=== PATIENT | female | born 1980 | race Caucasian/White ===

== ENCOUNTER 2022-10-18 00:51 | Emergency (ER) | payer OTHER ==
[2022-10-18] MEDS ORDERED: LORazepam 2 MG/ML INJ IV PRN ×3 (00:54)
[2022-10-18] MEDS ORDERED: THIAMINE 100 MG/ML 2 ML VIAL IM STA (00:54)
[2022-10-18 01:39] LABS: Basophils % (A) 1 %; Eosinophils # (A) 0.2 k/uL (0-0.7); Eosinophils % (A) 2 %; HGB 13.6 gm/dL (11.4-16.0); Lymphocytes # (A) 1.7 k/uL (1.0-4.8); Lymphocytes % (A) 28 %; MCH 33.2 pg (25.0-35.0); MCHC 34.9 g/dL (31.0-37.0); MCV 95.1 fL (80.0-100.0); Mean Platelet Volume 7.4; Monocytes # (A) 0.3 k/uL (0-1.0); Monocytes % (A) 5 %; Neutrophils # (A) 3.8 k/uL (1.3-7.7); Neutrophils % (A) 63 %; Platelet Count 142 k/uL (150-450); RDW 12.2 % (11.5-15.5); WBC 6.1 k/uL (3.8-10.6)
[2022-10-18 01:51] LABS: ALT 28 U/L (4-34); AST 40 U/L (14-36); African American GFR (CKD) >90 (>60 ml/min/1.73 sqM); Albumin 4.7 g/dL (3.5-5.0); Alcohol <10 mg/dL; Alkaline Phosphatase 90 U/L (38-126); Anion Gap 7 mmol/L; Blood Urea Nitrogen 17 mg/dL (7-17); Calcium 9.4 mg/dL (8.4-10.2); Carbon Dioxide 29 mmol/L (22-30); Chloride 98 mmol/L (98-107); Glucose 127 mg/dL (74-99); Lipase 159 U/L (23-300); Magnesium 1.7 mg/dL (1.6-2.3); Non-African American GFR(CKD) >90 (>60 ml/min/1.73 sqM); Potassium 4.1 mmol/L (3.5-5.1); Sodium 134 mmol/L (137-145); Total Protein 7.5 g/dL (6.3-8.2)
[2022-10-18] MEDS ORDERED: THIAMINE 100 MG TAB PO STA (02:04)
[2022-10-18 02:13] LABS: Appearance,Urine Clear (Clear); Bilirubin,Urine Negative (Negative); Blood,Urine Negative (Negative); Color,Urine Yellow; Glucose,Urine (UA) Negative (Negative); Hyaline Casts,Urine 8 /lpf (0-2); Ketones,Urine Trace (Negative); Leukocyte Esterase,Urine Trace (Negative); Mucus,Urine Few /hpf; Nitrite,Urine Negative (Negative); PH, Urine 6.5 (5.0-8.0); Protein,Urine 1+ (Negative); RBC,Urine 1 /hpf (0-5); Squamous Epithelial Cell,Urine 2 /hpf (0-4); WBC,Urine 2 /hpf (0-5)
[2022-10-18 02:21] LABS: Amphetamine Screen,Urine Not Detected (NotDetected); Barbiturate Screen,Urine Not Detected (NotDetected); Benzodiazepines Screen,Urine Detected (NotDetected); Cocaine Screen,Urine Not Detected (NotDetected); Methadone Screen, Urine Not Detected (NotDetected); Opiate Screen,Urine Not Detected (NotDetected); Oxycodone Screen, Urine Not Detected (NotDetected); Phencyclidine Screen,Urine Not Detected (NotDetected); Tricyclic Antidepressant,Urine Detected (NotDetected); Urn Cannabinoid Scrn Not Detected (NotDetected)
[2022-10-18 02:44] VITALS: BP 145/93; PULSE 101
--- NOTE | 2022-10-18 02:44 | ED ---
General Adult HPI - General Chief complaint: Psychiatric Symptoms Stated complaint: Petition Time Seen by Provider: 10/18/22 00:53 - History of Present Illness Initial comments: This is a 42-year-old female with a past medical history including EtOH abuse presents emergency department via EMS under petition from [facility]. It was reported that the patient was having hallucinations at the rehab facility and was petitioned and sent into the emergency department for evaluation. The patient on arrival was resting in bed comfortably and did have thoughts of delusions while she was in her room but was able to answer all questions appropriately here. The patient denied suicidal or homicidal ideations. The patient also denied any auditory or visual hallucinations. The patient did state that her last alcoholic drink was 30 hours prior. The patient had been given 1 dose of Ativan at 6:30 PM. The patient denied any other acute pain or complaints at this time. Review of Systems ROS Statement: Those systems with pertinent positive or pertinent negative responses have been documented in the HPI. ROS Other: All systems not noted in ROS Statement are negative. General Exam Limitations: no limitations General appearance: alert, in no apparent distress Head exam: Present: atraumatic, normocephalic, normal inspection Eye exam: Present: normal appearance, PERRL Pupils: Present: normal accommodation ENT exam: Present: normal exam, normal oropharynx, mucous membranes moist Neck exam: Present: normal inspection, full ROM Respiratory exam: Present: normal lung sounds bilaterally Cardiovascular Exam: Present: regular rate, normal rhythm, normal heart sounds GI/Abdominal exam: Present: soft, normal bowel sounds Extremities exam: Present: normal inspection, full ROM, other (Amputation of the right forearm) Back exam: Present: normal inspection, full ROM Neurological exam: Present: alert, oriented X3, CN II-XII intact Psychiatric exam: Present: normal affect, normal mood Skin exam: Present: warm, dry Course Vital Signs 10/18/22 02:35 Pulse Rate 101 H Blood Pressure 145/93 O2 Sat by Pulse 98 Oximetry EKG Findings - EKG Comments: EKG Findings:: An EKG was obtained and was interpreted by myself showing a rate of 102, VA interval 142, QRS duration of 84 and QTC of 388. This EKG showed a sinus tachycardia with no ST segment elevation or depression noted. Medical Decision Making - Medical Decision Making Was pt. sent in by a medical professional or institution (JOSE Jimenez, UNDERCOVER COP, urgent care, hospital, or care home...) When possible be specific @ -Yes, [place] Did you speak to anyone other than the patient for history (EMS, parent, family, police, friend...)? What history was obtained from this source @ -Yes, patient's at bedside, EMS Did you review nursing and triage notes (agree or disagree)? Why? @ -I reviewed and agree with nursing and triage notes Were old charts reviewed (outside hosp., previous admission, EMS record, old EKG, old radiological studies, urgent care reports/EKG's, care home records)? Report findings @ -No old charts were reviewed Differential Diagnosis (chest pain, altered mental status, abdominal pain women, abdominal pain men, vaginal bleeding, weakness, fever, dyspnea, syncope, headache, dizziness, GI bleed, back pain, seizure, CVA, palpatations, mental health)? @ -Auditory hallucinations, visual hallucinations, EtOH withdrawal EKG interpreted by me (3pts min.). @ -As above X-rays interpreted by me (1pt min.). @ -Chest x-ray was obtained and was interpreted by myself showing no acute process. CT interpreted by me (1pt min.). @ -None done U/S interpreted by me (1pt. min.). @ -None done What testing was considered but not performed or refused? (CT, X-rays, U/S, labs)? Why? @ -None What meds were considered but not given or refused? Why? @ -None Did you discuss the management of the patient with other professionals (professionals i.e. JOSE Jimenez, UNDERCOVER COP, lab, RT, psych nurse, social insurance specialist, roll scale man, teacher, senior officer, hospice case manager)? Give summary @ -Yes, EPS nurse Was smoking cessation discussed for >3mins.? @ -Yes Was critical care preformed (if so, how long)? @ -No Were there social determinants of health that impacted care today? How? (Home lessness, low income, unemployed, alcoholism, drug addiction, transportation, low edu. Level, literacy, decrease access to med. care, long-term, rehab)? @ -Chronic alcoholism Was there de-escalation of care discussed even if they declined (Discuss DNR or withdrawal of care, Hospice)? DNR status @ -No What co-morbidities impacted this encounter? (DM, HTN, Smoking, COPD, CAD, Cancer, CVA, ARF, Chemo, Hep., AIDS, mental health diagnosis, sleep apnea, morbid obesity)? @ -None Was patient admitted / discharged? Hospital course, mention meds given and route, prescriptions, significant lab abnormalities, going to OR and other pertinent info. @ -The patient was seen and evaluated emergency department. Physical exam, the patient was resting in bed without any acute distress. Vital signs were stable on admission. Due to the patient's concern hallucinations in the setting of EtOH withdrawal, laboratory workup was obtained and CIWA score was also obtained. CIWA was 1. All laboratory workup was within normal limits. The patient was medically cleared for EPS evaluation. The patient was petitioned by [place] stated that she was hallucinating there. The patient remained stable and was seen by EPS. EPS to evaluate the patient and stated that the patient could be discharged back to [place] or home based on the patient's decisions. It was reported the patient likely had mild hallucinations secondary to EtOH withdrawal. The patient denied of any continued hallucinations here and I did agree with this assessment. The patient was discharged home in stable condition. Undiagnosed new problem with uncertain prognosis? @ -No Drug Therapy requiring intensive monitoring for toxicity (Heparin, Nitro, Insulin, Cardizem)? @ -No Were any procedures done? @ -No Diagnosis/symptom? @ -Hallucinations secondary to mild EtOH withdrawal, resolved Acute, or Chronic, or Acute on Chronic? @ -Acute Uncomplicated (without systemic symptoms) or Complicated (systemic symptoms)? @ -Uncomplicated Side effects of treatment? @ -No Exacerbation, Progression, or Severe Exacerbation? @ -No Poses a threat to life or bodily function? How? (Chest pain, USA, [place], pneumonia, PE, COPD, DKA, ARF, appy, cholecystitis, CVA, Diverticulitis, Homicidal, Suicidal, threat to staff... and all critical care pts) @ -No - Lab Data Result diagrams: 10/18/22 01:25 10/18/22 01:25 Lab Results 10/18/22 10/18/22 10/18/22 Range/Units 01:15 01:25 01:25 WBC 6.1 (3.8-10.6) k/uL RBC 4.10 (3.80-5.40) m/uL Hgb 13.6 (11.4-16.0) gm/dL Hct 39.0 (34.0-46.0) % MCV 95.1 (80.0-100.0) fL MCH 33.2 (25.0-35.0) pg MCHC 34.9 (31.0-37.0) g/dL RDW 12.2 (11.5-15.5) % Plt Count 142 L (150-450) k/uL MPV 7.4 Neutrophils % 63 % Lymphocytes % 28 % Monocytes % 5 % Eosinophils % 2 % Basophils % 1 % Neutrophils # 3.8 (1.3-7.7) k/uL Lymphocytes # 1.7 (1.0-4.8) k/uL Monocytes # 0.3 (0-1.0) k/uL Eosinophils # 0.2 (0-0.7) k/uL Basophils # 0.0 (0-0.2) k/uL Sodium (137-145) mmol/L Potassium (3.5-5.1) mmol/L Chloride (98-107) mmol/L Carbon Dioxide (22-30) mmol/L Anion Gap mmol/L BUN (7-17) mg/dL Creatinine (0.52-1.04) mg/dL Est GFR (CKD-EPI)AfAm (>60 ml/min/1.73 sqM) Est GFR (CKD-EPI)NonAf (>60 ml/min/1.73 sqM) Glucose (74-99) mg/dL Calcium (8.4-10.2) mg/dL Magnesium (1.6-2.3) mg/dL Total Bilirubin (0.2-1.3) mg/dL AST (14-36) U/L ALT (4-34) U/L Alkaline Phosphatase (38-126) U/L Total Protein (6.3-8.2) g/dL Albumin (3.5-5.0) g/dL Lipase (23-300) U/L Urine Color Yellow Urine Appearance Clear (Clear) Urine pH 6.5 (5.0-8.0) Ur Specific [place] 1.030 (1.001-1.035) Urine Protein 1+ H (Negative) Urine Glucose (UA) Negative (Negative) Urine Ketones Trace H (Negative) Urine Blood Negative (Negative) Urine Nitrite Negative (Negative) Urine Bilirubin Negative (Negative) Urine Urobilinogen 2.0 (<2.0) mg/dL Ur Leukocyte Esterase Trace H (Negative) Urine RBC 1 (0-5) /hpf Urine WBC 2 (0-5) /hpf Ur Squamous Epith Cells 2 (0-4) /hpf Hyaline Casts 8 H (0-2) /lpf Urine Mucus Few H (None) /hpf Urine HCG, Qual (Not Detectd) Urine Opiates Screen Not Detected (NotDetected) Ur Oxycodone Screen Not Detected (NotDetected) Urine Methadone Screen Not Detected (NotDetected) Ur Propoxyphene Screen Not Detected (NotDetected) Ur Barbiturates Screen Not Detected (NotDetected) U Tricyclic Antidepress Detected H (NotDetected) Ur Phencyclidine Scrn Not Detected (NotDetected) Ur Amphetamines Screen Not Detected (NotDetected) U Methamphetamines Scrn Not Detected (NotDetected) U Benzodiazepines Scrn Detected H (NotDetected) Urine Cocaine Screen Not Detected (NotDetected) U Marijuana (THC) Screen Not Detected (NotDetected) Serum Alcohol mg/dL 10/18/22 10/18/22 Range/Units 01:25 01:25 WBC (3.8-10.6) k/uL RBC (3.80-5.40) m/uL Hgb (11.4-16.0) gm/dL Hct (34.0-46.0) % MCV (80.0-100.0) fL MCH (25.0-35.0) pg MCHC (31.0-37.0) g/dL RDW (11.5-15.5) % Plt Count (150-450) k/uL MPV Neutrophils % % Lymphocytes % % Monocytes % % Eosinophils % % Basophils % % Neutrophils # (1.3-7.7) k/uL Lymphocytes # (1.0-4.8) k/uL Monocytes # (0-1.0) k/uL Eosinophils # (0-0.7) k/uL Basophils # (0-0.2) k/uL Sodium 134 L (137-145) mmol/L Potassium 4.1 (3.5-5.1) mmol/L Chloride 98 (98-107) mmol/L Carbon Dioxide 29 (22-30) mmol/L Anion Gap 7 mmol/L BUN 17 (7-17) mg/dL Creatinine 0.81 (0.52-1.04) mg/dL Est GFR (CKD-EPI)AfAm >90 (>60 ml/min/1.73 sqM) Est GFR (CKD-EPI)NonAf >90 (>60 ml/min/1.73 sqM) Glucose 127 H (74-99) mg/dL Calcium 9.4 (8.4-10.2) mg/dL Magnesium 1.7 (1.6-2.3) mg/dL Total Bilirubin 1.0 (0.2-1.3) mg/dL AST 40 H (14-36) U/L ALT 28 (4-34) U/L Alkaline Phosphatase 90 (38-126) U/L Total Protein 7.5 (6.3-8.2) g/dL Albumin 4.7 (3.5-5.0) g/dL Lipase 159 (23-300) U/L Urine Color Urine Appearance (Clear) Urine pH (5.0-8.0) Ur Specific [place] (1.001-1.035) Urine Protein (Negative) Urine Glucose (UA) (Negative) Urine Ketones (Negative) Urine Blood (Negative) Urine Nitrite (Negative) Urine Bilirubin (Negative) Urine Urobilinogen (<2.0) mg/dL Ur Leukocyte Esterase (Negative) Urine RBC (0-5) /hpf Urine WBC (0-5) /hpf Ur Squamous Epith Cells (0-4) /hpf Hyaline Casts (0-2) /lpf Urine Mucus (None) /hpf Urine HCG, Qual Not Detected (Not Detectd) Urine Opiates Screen (NotDetected) Ur Oxycodone Screen (NotDetected) Urine Methadone Screen (NotDetected) Ur Propoxyphene Screen (NotDetected) Ur Barbiturates Screen (NotDetected) U Tricyclic Antidepress (NotDetected) Ur Phencyclidine Scrn (NotDetected) Ur Amphetamines Screen (NotDetected) U Methamphetamines Scrn (NotDetected) U Benzodiazepines Scrn (NotDetected) Urine Cocaine Screen (NotDetected) U Marijuana (THC) Screen (NotDetected) Serum Alcohol <10 mg/dL Disposition Clinical Impression: Hallucinations, Alcohol withdrawal Disposition: HOME SELF-CARE Condition: Stable Instructions (If sedation given, give patient instructions): Alcohol Withdrawal (DC) Is patient prescribed a controlled substance at d/c from ED?: No Referrals: Ant Perry MD [Primary Care Provider] - 1-2 days Time of Disposition: 04:25
--- NOTE | 2022-10-18 03:15 | XR ---
EXAM: XR Chest, 2 Views CLINICAL HISTORY: ITS.REASON XR Reason: AMS TECHNIQUE: Frontal and lateral views of the chest. COMPARISON: No relevant prior studies available. FINDINGS: Lungs: Unremarkable. No consolidation. Pleural space: Unremarkable. No pneumothorax. No pleural effusions. Heart: Unremarkable. No cardiomegaly. Mediastinum: Unremarkable. Bones/joints: No acute osseous abnormalities. IMPRESSION: Normal chest.
[2022-10-19] MEDS ORDERED: THIAMINE 100 MG TAB PO SCH (09:00)
== END 2022-10-18 05:09 | disposition home or self-care (01) ==
LOC: EC 00:51
DX: R44.3 Hallucinations, unspecified (principal); F10.239 Alcohol dependence with withdrawal, unspecified; Y90.0 Blood alcohol level of less than 20 mg/100 ml
CPT/HCPCS: 99285 ×2; 36415; 93005; 80053; 83690; 83735; 85025; 81001; 81025; 80306; 71046; G0480; 80320

== ENCOUNTER 2023-06-26 18:26 | Emergency (ER) | payer OTHER ==
[2023-06-26 19:35] VITALS: RESP 16; TEMP 98.9
--- NOTE | 2023-06-26 19:43 | XR ---
EXAMINATION TYPE: XR chest 2V DATE OF EXAM: 06/26/2023 7:37 PM CLINICAL INDICATION:Female, 42 years old with history of Chest Pain; [facility] COMPARISON: 10/18/2022 TECHNIQUE: XR chest 2V Frontal and lateral views of the chest. FINDINGS: Lungs/Pleura: There is no evidence of pleural effusion, focal consolidation, or pneumothorax. Pulmonary vascularity: Unremarkable. Heart/mediastinum: Cardiomediastinal silhouette is unremarkable. Musculoskeletal: No acute osseous pathology. Other findings: None IMPRESSION: No acute cardiopulmonary disease/process.
[2023-06-26 20:18] LABS: Basophils # (A) 0.1 k/uL (0-0.2); Basophils % (A) 1 %; Eosinophils % (A) 0 %; HCT 45.4 % (34.0-46.0); HGB 15.4 gm/dL (11.4-16.0); Lymphocytes # (A) 1.5 k/uL (1.0-4.8); Lymphocytes % (A) 27 %; MCH 31.9 pg (25.0-35.0); MCHC 33.9 g/dL (31.0-37.0); Mean Platelet Volume 7.8; Monocytes # (A) 0.3 k/uL (0-1.0); Monocytes % (A) 5 %; Neutrophils # (A) 3.7 k/uL (1.3-7.7); Neutrophils % (A) 66 %; Platelet Count 157 k/uL (150-450); RBC 4.83 m/uL (3.80-5.40); RDW 12.9 % (11.5-15.5); WBC 5.5 k/uL (3.8-10.6)
[2023-06-26 20:32] LABS: ALT 70 U/L (4-34); AST 124 U/L (14-36); African American GFR (CKD) >90 (>60 ml/min/1.73 sqM); Alkaline Phosphatase 81 U/L (38-126); Anion Gap 22 mmol/L; Blood Urea Nitrogen 13 mg/dL (7-17); Calcium 9.3 mg/dL (8.4-10.2); Carbon Dioxide 23 mmol/L (22-30); Chloride 93 mmol/L (98-107); Glucose 106 mg/dL (74-99); Magnesium 1.7 mg/dL (1.6-2.3); Non-African American GFR(CKD) >90 (>60 ml/min/1.73 sqM); Sodium 138 mmol/L (137-145); Total Bilirubin 1.3 mg/dL (0.2-1.3); Total Protein 7.9 g/dL (6.3-8.2)
[2023-06-26] MEDS ORDERED: SODIUM CHLORIDE 0.9% 1,000 ML IV STA (20:33)
[2023-06-26] MEDS ORDERED: LORazepam 2 MG/ML INJ IV STA (20:33)
[2023-06-26] MEDS ORDERED: ONDANSETRON 4 MG/2 ML VIAL IVP STA (20:34)
--- NOTE | 2023-06-26 20:36 | ED ---
Chest Pain HPI - General Chief Complaint: Chest Pain Stated Complaint: chest pain Time Seen by Provider: 06/26/23 18:34 Source: patient, EMS Mode of arrival: EMS Limitations: no limitations - History of Present Illness Initial Comments: 42 year old female presenting from [place] with a chief complaint of chest pain. Patient states approximately 5 PM today started to experience chest pain while at rest. Pain is left-sided. Pain is sharp in nature. Pain is intermittent in nature. No aggravating or alleviating factors. Since also notes that she is withdrawing from alcohol. No prior seizures secondary to alcohol withdrawal. Notes over the past few days has also had some headache and nausea. Patient also admits to some anxiety. No auditory or visual hallucinations. No suicidal or homicidal ideation. Redness of breath. Denies fever. Denies IV drug use. - Related Data Allergies Allergy/AdvReac Type Severity Reaction Status Date / Time No Known Allergies Allergy Verified 06/26/23 18:59 Review of Systems ROS Statement: Those systems with pertinent positive or pertinent negative responses have been documented in the HPI. ROS Other: All systems not noted in ROS Statement are negative. Past Medical History History of Any Multi-Drug Resistant Organisms: None Reported Past Psychological History: No Psychological Hx Reported Smoking Status: Vaper Past Alcohol Use History: Daily, Heavy Past Drug Use History: None Reported General Exam Limitations: no limitations General appearance: alert, in no apparent distress ENT exam: Present: normal exam Neck exam: Present: normal inspection Respiratory exam: Present: normal lung sounds bilaterally Cardiovascular Exam: Present: normal rhythm GI/Abdominal exam: Present: soft Neurological exam: Present: alert, oriented X3 Skin exam: Present: warm, dry Course Vital Signs 06/26/23 06/26/23 19:15 23:06 Temperature 98.9 F Pulse Rate 111 H 102 H Respiratory 16 16 Rate Blood Pressure 134/80 O2 Sat by Pulse 98 98 Oximetry Chest Pain MDM - MDM Was pt. sent in by a medical professional or institution (, PA, INTEGRITY ASSESSOR, urgent care, hospital, or residential...) When possible be specific @ -[place] Did you speak to anyone other than the patient for history (EMS, parent, family, police, friend...)? What history was obtained from this source @ -No Did you review nursing and triage notes (agree or disagree)? Why? @ -I reviewed and agree with nursing and triage notes Were old charts reviewed (outside hosp., previous admission, EMS record, old EKG, old radiological studies, urgent care reports/EKG's, residential records)? Report findings @ -No old charts were reviewed Differential Diagnosis (chest pain, altered mental status, abdominal pain women, abdominal pain men, vaginal bleeding, weakness, fever, dyspnea, syncope, headache, dizziness, GI bleed, back pain, seizure, CVA, palpatations, mental health, musculoskeletal)? @ -Differential Chest Pain: Stable Angina, Unstable Angina, STEMI, NSTEMI Aortic Dissection, Pneumothorax, Musculoskeletal, Esophageal Spasm GERD, Cholecystitis, Pancreatitis, Zoster, this is not meant to be an all-inclusive list. EKG interpreted by me (3pts min.). @ -EKG shows a sinus rhythm at [address] and T-wave changes. [place] 145, QRS 93, QT/QTc 338/402. X-rays interpreted by me (1pt min.). @ -Chest x-ray to rule out me showing no acute finding. CT interpreted by me (1pt min.). @ -None done U/S interpreted by me (1pt. min.). @ -None done What testing was considered but not performed or refused? (CT, X-rays, U/S, labs)? Why? @ -None What meds were considered but not given or refused? Why? @ -None Did you discuss the management of the patient with other professionals (professionals i.e. , PA, INTEGRITY ASSESSOR, lab, RT, psych nurse, social sciences department chair, criminal defense lawyer, teacher, safety patrol officer, caseworker protective services)? Give summary @ -No Was smoking cessation discussed for >3mins.? @ -No Was critical care preformed (if so, how long)? @ -No Were there social determinants of health that impacted care today? How? (Homelessness, low income, unemployed, alcoholism, drug addiction, transportation, low edu. Level, literacy, decrease access to med. care, [facility]ci, rehab)? @ -No Was there de-escalation of care discussed even if they declined (Discuss DNR or withdrawal of care, Hospice)? DNR status @ -No What co-morbidities impacted this encounter? (DM, HTN, Smoking, COPD, CAD, Cancer, CVA, ARF, Chemo, Hep., AIDS, mental health diagnosis, sleep apnea, morbid obesity)? @ -History of alcohol abuse Was patient admitted / discharged? Hospital course, mention meds given and route, prescriptions, significant lab abnormalities, going to OR and other pertinent info. @ -Discharge 42-year-old female presenting to the ED A chief complaint of chest pain. Laboratory studies reviewed. CBC unremarkable. Coagulation studies unremarkable. Chemistry panel does show some transaminitis however largely unremarkable. UA unremarkable. Troponin 2 unremarkable. At this time, vital signs stable afebrile. Patient discharged home in stable condition. Discussed return precautions with patient who verbalizes agreement. Undiagnosed new problem with uncertain prognosis? @ -No Drug Therapy requiring intensive monitoring for toxicity (Heparin, Nitro, Insulin, Cardizem)? @ -No Were any procedures done? @ -No Diagnosis/symptom? @ -Chest pain Acute, or Chronic, or Acute on Chronic? @ -Acute Uncomplicated (without systemic symptoms) or Complicated (systemic symptoms)? @ -Uncomplicated Side effects of treatment? @ -No Exacerbation, Progression, or Severe Exacerbation? @ -No Poses a threat to life or bodily function? How? (Chest pain, [place], [place], pneumonia, PE, COPD, DKA, ARF, appy, cholecystitis, CVA, Diverticulitis, Homicidal, Della cidal, threat to staff... and all critical care pts) @ -No Disposition Clinical Impression: Chest pain Disposition: HOME SELF-CARE Condition: Good Instructions (If sedation given, give patient instructions): Chest Pain (ED) Additional Instructions: Please return to the Emergency Department if symptoms worsen or any other concerns. Is patient prescribed a controlled substance at d/c from ED?: No Referrals: Ant Perry MD [Primary Care Provider] - 1-2 days Time of Disposition: 23:16
[2023-06-26 20:40] LABS: Partial Thromboplastin Time 23.8 sec (22.0-30.0); Prothrombin Time 10.6 sec (10.0-12.5)
[2023-06-26 22:44] LABS: Bacteria,Urine Rare /hpf; Budding Yeast,Urine Few /hpf; Mucus,Urine Occasional /hpf; RBC,Urine 3 /hpf (0-5); Squamous Epithelial Cell,Urine 9 /hpf (0-4); WBC,Urine 8 /hpf (0-5)
[2023-06-26 22:46] LABS: Appearance,Urine Cloudy (Clear); Color,Urine Amber; Glucose,Urine (UA) Negative (Negative); PH, Urine 6.5 (5.0-8.0); Protein,Urine 1+ (Negative); Specific Gravity,Urine 1.015 (1.001-1.035)
[2023-06-26 22:47] LABS: Bilirubin,Urine Negative (Negative); Blood,Urine Large (Negative); Ketones,Urine 4+ (Negative); Nitrite,Urine Negative (Negative); Urobilinogen,Urine <2.0 mg/dL (<2.0)
[2023-06-26 22:48] LABS: Leukocyte Esterase,Urine Small (Negative)
[2023-06-26 23:20] VITALS: PULSE 102
[2023-06-26 23:42] VITALS: BP 145/78
== END 2023-06-26 23:43 | disposition home or self-care (01) ==
LOC: EC 18:26
DX: R07.9 Chest pain, unspecified (principal); F17.290 Nicotine dependence, other tobacco product, uncomplicated
CPT/HCPCS: 99285 ×2; 96374 ×2; 96375 ×2; 96361 ×2; 36415; 93005; 80053; 83735; 84484; 85025; 85610; 85730; 81001; 71046; J2060; J2405

== ENCOUNTER 2024-06-02 18:12 | Emergency (ER) | payer OTHER ==
[2024-06-02 18:38] VITALS: TEMP 97.7
--- NOTE | 2024-06-02 19:46 | XR ---
EXAMINATION TYPE: XR chest 2V DATE OF EXAM: 06/02/2024 7:41 PM COMPARISON: Multiple prior chest radiographs, most recently dated 06/26/2023. CLINICAL INDICATION: Female, 43 years old with history of Chest Pain; [facility] TECHNIQUE: XR chest 2V Frontal and lateral views of the chest. FINDINGS: Cardiac silhouette within normal limits for size. Minimal left lung base scarring/atelectasis. No acute focal consolidation. No pleural effusion. #No appreciable pneumothorax. No acute osseous adenopathy. IMPRESSION: No acute abnormality in the chest. [facility], , 06/02/2024 7:43 PM
[2024-06-02] MEDS: LORazepam 2 MG/ML INJ IV STA ×3 (20:00→23:03)
[2024-06-02 20:17] LABS: Basophils # (A) 0.1 k/uL (0-0.2); Basophils % (A) 1 %; Eosinophils # (A) 0.1 k/uL (0-0.7); Eosinophils % (A) 1 %; HCT 38.3 % (34.0-46.0); HGB 12.8 gm/dL (11.4-16.0); Lymphocytes # (A) 1.6 k/uL (1.0-4.8); Lymphocytes % (A) 26 %; MCH 33.2 pg (25.0-35.0); MCHC 33.5 g/dL (31.0-37.0); MCV 99.2 fL (80.0-100.0); Mean Platelet Volume 8.6; Monocytes # (A) 0.3 k/uL (0-1.0); Monocytes % (A) 5 %; Neutrophils # (A) 3.9 k/uL (1.3-7.7); Neutrophils % (A) 65 %; Platelet Count 148 k/uL (150-450); RBC 3.86 m/uL (3.80-5.40); RDW 12.9 % (11.5-15.5)
[2024-06-02] MEDS: SUMAtriptan succinate 50 MG TAB PO STA (20:51)
[2024-06-02 20:53] LABS: INR 1.1 (<1.2); Partial Thromboplastin Time 25.6 sec (22.0-30.0); Prothrombin Time 11.7 sec (10.0-12.5)
[2024-06-02 21:22] LABS: ALT 28 U/L (4-34); AST 46 U/L (14-36); African American GFR (CKD) >90 (>60 ml/min/1.73 sqM); Albumin 3.8 g/dL (3.5-5.0); Alcohol 74 mg/dL; Alkaline Phosphatase 70 U/L (38-126); Anion Gap 3 mmol/L; Blood Urea Nitrogen 12 mg/dL (7-17); Calcium 8.2 mg/dL (8.4-10.2); Carbon Dioxide 29 mmol/L (22-30); Chloride 101 mmol/L (98-107); Glucose 122 mg/dL (74-99); Lipase 48 U/L (23-300); Magnesium 1.5 mg/dL (1.6-2.3); Non-African American GFR(CKD) >90 (>60 ml/min/1.73 sqM); Potassium 4.1 mmol/L (3.5-5.1); Sodium 133 mmol/L (137-145); Total Bilirubin 0.3 mg/dL (0.2-1.3); Total Protein 6.2 g/dL (6.3-8.2)
[2024-06-02 22:54] VITALS: RESP 18
[2024-06-02] MEDS: MAGNESIUM OXIDE 400 MG TAB PO STA (23:02)
--- NOTE | 2024-06-02 23:03 | ED ---
Chest Pain HPI - General Chief Complaint: Chest Pain Stated Complaint: Dizziness Time Seen by Provider: 06/02/24 18:15 Source: patient Mode of arrival: ambulatory Limitations: no limitations - History of Present Illness Initial Comments: 43-year-old female presents to the emergency department as a transfer from [facility]. Patient was going through the admission process for alcohol rehab. She reports that she drank approximately 12 hours ago. During the triage process the patient did mention to staff that she was having chest pain. She reports to a pressure sensation which she attributes to signs of withdrawal. Patient states that they did not provide her with anything for withdrawal symptoms yet as she was still checking in. Patient drinks alcohol daily. She takes Suboxone. Denies any other current drug use. She has no cardiac history. Denies fevers, chills or cough. No numbness, tingling or weakness in her arms or legs. No abdominal pain. No changes in her bowel or bladder habits. Denies history of DVT or PE. Patient not currently on any anticoagulation. No concern for . No other alleviating, precipitating or modifying factors - Related Data Allergies Allergy/AdvReac Type Severity Reaction Status Date / Time No Known Allergies Allergy Verified 06/02/24 18:16 Review of Systems ROS Statement: Those systems with pertinent positive or pertinent negative responses have been documented in the HPI. ROS Other: All systems not noted in ROS Statement are negative. Past Medical History Past Medical History: Hypertension History of Any Multi-Drug Resistant Organisms: None Reported Past Surgical History: No Surgical Hx Reported Past Psychological History: No Psychological Hx Reported Smoking Status: Vaper Past Alcohol Use History: Daily, Heavy Past Drug Use History: None Reported General Exam Limitations: no limitations General appearance: alert, anxious, other (Tremulous) Head exam: Present: atraumatic, normocephalic, normal inspection Eye exam: Present: normal appearance, PERRL, EOMI. Absent: scleral icterus, conjunctival injection, periorbital swelling ENT exam: Present: normal exam, mucous membranes moist Neck exam: Present: normal inspection. Absent: tenderness, meningismus, lymphadenopathy Respiratory exam: Present: normal lung sounds bilaterally. Absent: respiratory distress, wheezes, rales, rhonchi, stridor Cardiovascular Exam: Present: regular rate, normal rhythm, normal heart sounds. Absent: systolic murmur, diastolic murmur, rubs, gallop, clicks GI/Abdominal exam: Present: soft, normal bowel sounds. Absent: distended, tenderness, guarding, rebound, rigid Extremities exam: Present: normal inspection, full ROM, normal capillary refill. Absent: tenderness, pedal edema, joint swelling, calf tenderness Back exam: Present: normal inspection Neurological exam: Present: alert, oriented X3, CN II-XII intact Psychiatric exam: Present: normal affect, normal mood Skin exam: Present: warm, dry, intact, normal color. Absent: rash Course Vital Signs 06/02/24 06/02/24 06/02/24 18:14 18:36 20:03 Temperature 98.2 F 97.7 F Pulse Rate 93 96 89 Respiratory 20 17 17 Rate Blood Pressure 139/87 132/87 151/93 O2 Sat by Pulse 95 95 96 Oximetry 06/02/24 06/02/24 06/02/24 20:36 22:52 23:05 Temperature Pulse Rate 96 86 97 Respiratory 20 18 18 Rate Blood Pressure 132/90 152/100 153/95 O2 Sat by Pulse 96 95 95 Oximetry Chest Pain MDM - MDM Was pt. sent in by a medical professional or institution (, PA, BINDERY CUTTER OPERATOR, urgent care, hospital, or intermediate...) When possible be specific @ -Patient sent in from [facility] Did you speak to anyone other than the patient for history (EMS, parent, family, police, friend...)? What history was obtained from this source @ -Spoke with EMS for history Did you review nursing and triage notes (agree or disagree)? Why? @ -I reviewed and agree with nursing and triage notes Were old charts reviewed (outside hosp., previous admission, EMS record, old EKG, old radiological studies, urgent care reports/EKG's, intermediate records)? Report findings @ -I reviewed the paperwork that accompanies the patient from [facility] Differential Diagnosis (chest pain, altered mental status, abdominal pain women, abdominal pain men, vaginal bleeding, weakness, fever, dyspnea, syncope, headache, dizziness, GI bleed, back pain, seizure, CVA, palpatations, mental health, musculoskeletal)? @ -Differential Chest Pain: Stable Angina, Unstable Angina, STEMI, NSTEMI Aortic Dissection, Pneumothorax, Musculoskeletal, Esophageal Spasm GERD, Cholecystitis, Pancreatitis, Zoster, this is not meant to be an all-inclusive list. EKG interpreted by me (3pts min.). @ -yes and demonstrates sinus rhythm with rate of 88. Parable 159. QRS 96. QTc of 403. No acute ST segment elevations or depressions X-rays interpreted by me (1pt min.). @ -Yes and demonstrates no acute process CT interpreted by me (1pt min.). @ -None done U/S interpreted by me (1pt. min.). @ -None done What testing was considered but not performed or refused? (CT, X-rays, U/S, labs)? Why? @ -None What meds were considered but not given or refused? Why? @ -None Did you discuss the management of the patient with other professionals (professionals i.e. , PA, BINDERY CUTTER OPERATOR, lab, RT, psych nurse, delinquency prevention social worker, physicist astrophysics, teacher, space operations officer, medical case manager)? Give summary @ -No Was smoking cessation discussed for >3mins.? @ -No Was critical care preformed (if so, how long)? @ -No Were there social determinants of health that impacted care today? How? (Homel essness, low income, unemployed, alcoholism, drug addiction, transportation, low edu. Level, literacy, decrease access to med. care, group home, rehab)? @ -Patient currently in rehab Was there de-escalation of care discussed even if they declined (Discuss DNR or withdrawal of care, Hospice)? DNR status @ -No What co-morbidities impacted this encounter? (DM, HTN, Smoking, COPD, CAD, Cancer, CVA, ARF, Chemo, Hep., AIDS, mental health diagnosis, sleep apnea, morbid obesity)? @ -Alcohol abuse Was patient admitted / discharged? Hospital course, mention meds given and route, prescriptions, significant lab abnormalities, going to OR and other pertinent info. @ -Upon arrival patient seen and evaluated in room 1. Thorough history and physical exam was performed. Patient sent over with indication that she needs a cardiac workup due to reported chest pain. Patient was agreeable to this. IV was established and laboratory studies are conducted. Twelve-lead EKG was performed. Patient remains on continuous pulse ox and cardiac monitoring. Patient does have some signs of withdrawal and therefore she is given Ativan. She also reports to a migraine which is typical for her without any new or w orsening symptoms. She is requesting her home Imitrex which she is also provided. Patient reports to improvement in her symptoms. Cardiac workup within normal limits. Results are discussed with the patient. She feels comfortable going back to [facility] at this time for the remainder of her detox. She will be transported back. Encouraged to return for any new or worsening symptoms. Patient agreeable to plan was discharged in stable condition Undiagnosed new problem with uncertain prognosis? @ -No Drug Therapy requiring intensive monitoring for toxicity (Heparin, Nitro, Insulin, Cardizem)? @ -No Were any procedures done? @ -No Diagnosis/symptom? @ -Acute chest pain, acute alcohol withdrawal, history of alcohol abuse Acute, or Chronic, or Acute on Chronic? @ -Acute Uncomplicated (without systemic symptoms) or Complicated (systemic symptoms)? @ -Complicated Side effects of treatment? @ -No Exacerbation, Progression, or Severe Exacerbation? @ -No Poses a threat to life or bodily function? How? (Chest pain, [place], [place], pneumonia, PE, COPD, DKA, ARF, appy, cholecystitis, CVA, Diverticulitis, Homicidal, Suicidal, threat to staff... and all critical care pts) @ -No Disposition Clinical Impression: Chest pain Disposition: HOME SELF-CARE Condition: Stable Instructions (If sedation given, give patient instructions): Chest Pain (ED) Additional Instructions: Your cardiac workup was negative. You will be discharged back to [facility] at this time Is patient prescribed a controlled substance at d/c from ED?: No Referrals: None,Stated [Primary Care Provider] - 1-2 days Time of Disposition: 23:03
[2024-06-02 23:07] VITALS: BP 153/95; PULSE 97
[2024-06-02 23:23] LABS: Amorphous Sediment,Urine Occasional /hpf; Appearance,Urine Cloudy (Clear); Bacteria,Urine Moderate /hpf; Bilirubin,Urine Negative (Negative); Blood,Urine Negative (Negative); Color,Urine Yellow; Glucose,Urine (UA) Negative (Negative); Ketones,Urine Negative (Negative); Leukocyte Esterase,Urine Trace (Negative); Mucus,Urine Rare /hpf; Nitrite,Urine Positive (Negative); Protein,Urine Trace (Negative); RBC,Urine 2 /hpf (0-5); Specific Gravity,Urine 1.021 (1.001-1.035); Squamous Epithelial Cell,Urine 14 /hpf (0-4); WBC,Urine 24 /hpf (0-5)
== END 2024-06-02 23:19 | disposition home or self-care (01) ==
LOC: EC 18:12
DX: F10.139 Alcohol abuse with withdrawal, unspecified (principal); R07.9 Chest pain, unspecified; F17.290 Nicotine dependence, other tobacco product, uncomplicated; Y90.0 Blood alcohol level of less than 20 mg/100 ml
CPT/HCPCS: 36415; 93005; 80053; 83690; 83735; 84484; 85025; 85610; 85730; 81001; 71046; 99285; 96374; 96376 ×2; G0480; J2060; 80320

== ENCOUNTER 2024-07-08 11:32 | Inpatient (IN) | payer OTHER ==
[2024-07-08] MEDS: LORazepam 2 MG/ML INJ IV STA ×5 (12:11→17:03)
[2024-07-08] MEDS: SODIUM CHLORIDE 0.9% 1,000 ML IV STA ×2 (12:34)
[2024-07-08] MEDS: SODIUM CHLORIDE 0.9% 500 ML 500 ML IV STA (12:34)
--- NOTE | 2024-07-08 12:36 | ED ---
Alcohol HPI - General Chief Complaint: Alcohol Stated Complaint: detox Time Seen by Provider: 07/08/24 11:33 Source: patient, EMS, RN notes reviewed Mode of arrival: EMS Limitations: no limitations - History of Present Illness Initial Comments: 43-year-old female presents emergency department with chief complaint of alcohol withdrawal. Patient checked into [facility] yesterday last drink yesterday morning states she drinks 2 packs a day states that she is having severe withdrawal symptoms worsened and shaky and she received 2 doses of Ativan at [facility]. She states that she is hallucinating seeing spiders she is very nauseated and she has been tachycardic and hypertensive. Patient states that I sent her in for admission. - Related Data Home Medications Medication Instructions Recorded Confirmed Acetaminophen Tab [Tylenol] 650 mg PO Q4H PRN 07/08/24 07/08/24 Budesonide/Formoterol Fumarate 2 puff INHALATION RT-BID 07/08/24 07/08/24 [Symbicort 80-4.5 Mcg Inhaler] Calcium Phos/D3/Magnesium/Zinc 1 tab PO TID PRN 07/08/24 07/08/24 [Xqrwnff-Dck-Lfiy-Vitamin D3] Chlorpheniramine Maleate 4 mg PO Q4H PRN 07/08/24 07/08/24 [Chlor-Trimeton] DULoxetine HCL [Cymbalta] 20 mg PO DAILY 07/08/24 07/08/24 Famotidine [Pepcid] 20 mg PO DAILY 07/08/24 07/08/24 Hyoscyamine Sulfate [Levsin] 0.125 mg PO QID PRN 07/08/24 07/08/24 LORazepam [Ativan] 1 - 2 mg PO Q4H 07/08/24 07/08/24 Loperamide HCl [Imodium A-D] 4 mg PO QID PRN 07/08/24 07/08/24 Mag Hydrox/Aluminum Hyd/Simeth 30 ml PO Q4H PRN 07/08/24 07/08/24 [Mylanta Maximum Strength Liq] Magnesium Hydroxide [Milk of 2,400 mg PO BID PRN 07/08/24 07/08/24 Magnesia] Mirtazapine [Remeron] 15 mg PO HS 07/08/24 07/08/24 Multivitamins, Thera [Multivitamin 1 tab PO DAILY 07/08/24 07/08/24 (formulary)] Naproxen [Naprosyn] 500 mg PO BID PRN 07/08/24 07/08/24 Pregabalin [Lyrica] 150 mg PO BID 07/08/24 07/08/24 Thiamine [Vitamin B-1] 100 mg PO DAILY 07/08/24 07/08/24 atenoloL [Tenormin] 50 mg PO HS 07/08/24 07/08/24 busPIRone HCl [Buspar] 10 mg PO BID 07/08/24 07/08/24 cloNIDine HCL [Catapres] 0.1 - 0.3 mg PO Q4H PRN 07/08/24 07/08/24 ondansetron HCL [Zofran] 8 mg PO Q6H PRN 07/08/24 07/08/24 Allergies Allergy/AdvReac Type Severity Reaction Status Date / Time No Known Allergies Allergy Verified 07/08/24 14:02 Review of Systems ROS Statement: Those systems with pertinent positive or pertinent negative responses have been documented in the HPI. ROS Other: All systems not noted in ROS Statement are negative. 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 alcoholic. History of Any Multi-Drug Resistant Organisms: None Reported Past Surgical History: No Surgical Hx Reported Past Psychological History: No Psychological Hx Reported Smoking Status: Vaper Past Alcohol Use History: Abuse, Daily, Heavy Past Drug Use History: None Reported General Exam Limitations: no limitations General appearance: alert, in no apparent distress Head exam: Present: atraumatic, normocephalic, normal inspection Eye exam: Present: normal appearance, PERRL, EOMI. Absent: scleral icterus, conjunctival injection, periorbital swelling ENT exam: Present: normal exam, mucous membranes moist Neck exam: Present: normal inspection. Absent: tenderness, meningismus, lymphadenopathy Respiratory exam: Present: normal lung sounds bilaterally. Absent: respiratory distress, wheezes, rales, rhonchi, stridor Cardiovascular Exam: Present: normal rhythm, tachycardia, normal heart sounds. Absent: systolic murmur, diastolic murmur, rubs, gallop, clicks GI/Abdominal exam: Present: soft, normal bowel sounds. Absent: distended, tenderness, guarding, rebound, rigid Neurological exam: Present: alert, oriented X3, other (Tremulous) Skin exam: Present: warm, dry, intact, normal color. Absent: rash Course Vital Signs 07/08/24 07/08/24 07/08/24 11:34 13:08 14:26 Temperature 98.3 F Pulse Rate 101 H 83 99 Respiratory 18 18 18 Rate Blood Pressure 142/100 135/81 152/90 O2 Sat by Pulse 99 97 98 Oximetry 07/08/24 07/08/24 07/08/24 16:44 17:12 17:41 Temperature Pulse Rate 72 67 79 Respiratory 26 H 18 18 Rate Blood Pressure 151/81 138/97 147/95 O2 Sat by Pulse 98 97 98 Oximetry Medical Decision Making - Medical Decision Making Was pt. sent in by a medical professional or institution (, PA, RETAIL SALES ASSOCIATE SEASONAL, urgent care, hospital, or fci...) When possible be specific @ -[facility] Did you speak to anyone other than the patient for history (EMS, parent, family, police, friend...)? What history was obtained from this source @ -No Did you review nursing and triage notes (agree or disagree)? Why? @ -I reviewed and agree with nursing and triage notes Were old charts reviewed (outside hosp., previous admission, EMS record, old EKG, old radiological studies, urgent care reports/EKG's, fci records)? Report findings @ -No old charts were reviewed Differential Diagnosis (chest pain, altered mental status, abdominal pain women, abdominal pain men, vaginal bleeding, weakness, fever, dyspnea, syncope, headache, dizziness, GI bleed, back pain, seizure, CVA, palpatations, mental health, musculoskeletal)? @ -Alcohol withdrawal, alcohol intoxication, delirium, EKG interpreted by me (3pts min.). @ -As above X-rays interpreted by me (1pt min.). @ -None done CT interpreted by me (1pt min.). @ -None done U/S interpreted by me (1pt. min.). @ -None done What testing was considered but not performed or refused? (CT, X-rays, U/S, labs)? Why? @ -None What meds were considered but not given or refused? Why? @ -None Did you discuss the management of the patient with other professionals (professionals i.e. , PA, RETAIL SALES ASSOCIATE SEASONAL, lab, RT, psych nurse, mental health social worker, lawyer real estate, teacher, geological technical officer, case specialist)? Give summary @Dr. Vee for admission, Dr. Jackson for ICU admission Was smoking cessation discussed for >3mins.? @ -No Was critical care preformed (if so, how long)? @ -No Were there social determinants of health that impacted care today? How? (Homelessness, low income, unemployed, alcoholism, drug addiction, transportation, low edu. Level, literacy, decrease access to med. care, [facility], rehab)? @ -No Was there de-escalation of care discussed even if they declined (Discuss DNR or withdrawal of care, Hospice)? DNR status @ -No What co-morbidities impacted this encounter? (DM, HTN, Smoking, COPD, CAD, Cancer, CVA, ARF, Chemo, Hep., AIDS, mental health diagnosis, sleep apnea, morbid obesity)? @ -None Was patient admitted / discharged? Hospital course, mention meds given and route, prescriptions, significant lab abnormalities, going to OR and other pertinent info. @ -Admitted there is ICU secondary to significant alcohol withdrawal delirium requiring Precedex after significant amount of Ativan. Patient was given potassium replacement, magnesium replacement, patient has pancreatitis Undiagnosed new problem with uncertain prognosis? @ -No Drug Therapy requiring intensive monitoring for toxicity (Heparin, Nitro, Insulin, Cardizem)? @ -No Were any procedures done? @ -No Diagnosis/symptom? @ -Alcohol withdrawal delirium, hypomagnesemia, hypokalemia, pancreatitis Acute, or Chronic, or Acute on Chronic? @ -[Acute Uncomplicated (without systemic symptoms) or Complicated (systemic symptoms)? @ -Complicated Side effects of treatment? @ -No Exacerbation, Progression, or Severe Exacerbation? @ -No Poses a threat to life or bodily function? How? (Chest pain, [place], [place], pneumonia, PE, COPD, DKA, ARF, appy, cholecystitis, CVA, Diverticulitis, Homicidal, Suicidal, threat to staff... and all critical care pts) @ -Yes - Lab Data Result diagrams: 07/08/24 12:07/08/24 18:43 Lab Results 07/08/24 07/08/24 07/08/24 Range/Units 12:29 12:29 12:29 WBC 7.3 (3.8-10.6) k/uL RBC 4.30 (3.80-5.40) m/uL Hgb 13.8 (11.4-16.0) gm/dL Hct 40.7 (34.0-46.0) % MCV 94.7 (80.0-100.0) fL MCH 32.2 (25.0-35.0) pg MCHC 33.9 (31.0-37.0) g/dL RDW 12.6 (11.5-15.5) % Plt Count 80 L (150-450) k/uL MPV 8.8 Neutrophils % 76 % Lymphocytes % 16 % Monocytes % 5 % Eosinophils % 1 % Basophils % 1 % Neutrophils # 5.5 (1.3-7.7) k/uL Lymphocytes # 1.1 (1.0-4.8) k/uL Monocytes # 0.4 (0-1.0) k/uL Eosinophils # 0.1 (0-0.7) k/uL Basophils # 0.1 (0-0.2) k/uL Manual Slide Review Performed RBC Morphology Normal Sodium 134 L (137-145) mmol/L Potassium 3.0 L (3.5-5.1) mmol/L Chloride 97 L (98-107) mmol/L Carbon Dioxide 24 (22-30) mmol/L Anion Gap 13 mmol/L BUN 15 (7-17) mg/dL Creatinine 0.82 (0.52-1.04) mg/dL Est GFR (CKD-EPI)AfAm >90 (>60 ml/min/1.73 sqM) Est GFR (CKD-EPI)NonAf 89 (>60 ml/min/1.73 sqM) Glucose 112 H (74-99) mg/dL Calcium 9.6 (8.4-10.2) mg/dL Magnesium 1.3 L (1.6-2.3) mg/dL Total Bilirubin 2.4 H (0.2-1.3) mg/dL AST 71 H (14-36) U/L ALT 23 (4-34) U/L Alkaline Phosphatase 124 (38-126) U/L Total Protein 7.9 (6.3-8.2) g/dL Albumin 4.8 (3.5-5.0) g/dL Lipase 2779 H (23-300) U/L Urine Color Yellow Urine Appearance Cloudy H (Clear) Urine pH 6.5 (5.0-8.0) Ur Specific [place] 1.033 (1.001-1.035) Urine Protein 2+ H (Negative) Urine Glucose (UA) Negative (Negative) Urine Ketones 1+ H (Negative) Urine Blood Moderate H (Negative) Urine Nitrite Positive H (Negative) Urine Bilirubin Negative (Negative) Urine Urobilinogen 4.0 (<2.0) mg/dL Ur Leukocyte Esterase Small H (Negative) Urine RBC 5 (0-5) /hpf Urine WBC 18 H (0-5) /hpf Ur Squamous Epith Cells 10 H (0-4) /hpf Urine Bacteria Moderate H (None) /hpf Urine Mucus Many H (None) /hpf Urine Opiates Screen Not Detected (NotDetected) Ur Oxycodone Screen Not Detected (NotDetected) Urine Methadone Screen Not Detected (NotDetected) Ur Barbiturates Screen Not Detected (NotDetected) U Tricyclic Antidepress Not Detected (NotDetected) Ur Phencyclidine Scrn Not Detected (NotDetected) Ur Amphetamines Screen Not Detected (NotDetected) U Methamphetamines Scrn Not Detected (NotDetected) U Benzodiazepines Scrn Detected H (NotDetected) Urine Cocaine Screen Not Detected (NotDetected) U Marijuana (THC) Screen Not Detected (NotDetected) Serum Alcohol <10 mg/dL Disposition Clinical Impression: Alcohol withdrawal delirium, UTI (urinary tract infection), Hypomagnesemia, Hypokalemia, Acute pancreatitis Disposition: ADMITTED IP TO THIS HOSP Condition: Poor Time of Disposition: 13:15
[2024-07-08 12:40] LABS: Basophils # (A) 0.1 k/uL (0-0.2); Basophils % (A) 1 %; Eosinophils # (A) 0.1 k/uL (0-0.7); Eosinophils % (A) 1 %; HCT 40.7 % (34.0-46.0); HGB 13.8 gm/dL (11.4-16.0); Lymphocytes # (A) 1.1 k/uL (1.0-4.8); Lymphocytes % (A) 16 %; MCH 32.2 pg (25.0-35.0); MCHC 33.9 g/dL (31.0-37.0); MCV 94.7 fL (80.0-100.0); Mean Platelet Volume 8.8; Monocytes # (A) 0.4 k/uL (0-1.0); Monocytes % (A) 5 %; Neutrophils # (A) 5.5 k/uL (1.3-7.7); Neutrophils % (A) 76 %; RDW 12.6 % (11.5-15.5); WBC 7.3 k/uL (3.8-10.6)
[2024-07-08 13:01] LABS: ALT 23 U/L (4-34); AST 71 U/L (14-36); African American GFR (CKD) >90 (>60 ml/min/1.73 sqM); Albumin 4.8 g/dL (3.5-5.0); Alcohol <10 mg/dL; Alkaline Phosphatase 124 U/L (38-126); Anion Gap 13 mmol/L; Blood Urea Nitrogen 15 mg/dL (7-17); Calcium 9.6 mg/dL (8.4-10.2); Carbon Dioxide 24 mmol/L (22-30); Chloride 97 mmol/L (98-107); Glucose 112 mg/dL (74-99); Magnesium 1.3 mg/dL (1.6-2.3); Non-African American GFR(CKD) 89 (>60 ml/min/1.73 sqM); Sodium 134 mmol/L (137-145); Total Bilirubin 2.4 mg/dL (0.2-1.3); Total Protein 7.9 g/dL (6.3-8.2)
[2024-07-08 13:07] LABS: Appearance,Urine Cloudy (Clear); Bacteria,Urine Moderate /hpf; Bilirubin,Urine Negative (Negative); Blood,Urine Moderate (Negative); Color,Urine Yellow; Glucose,Urine (UA) Negative (Negative); Ketones,Urine 1+ (Negative); Leukocyte Esterase,Urine Small (Negative); Mucus,Urine Many /hpf; Nitrite,Urine Positive (Negative); PH, Urine 6.5 (5.0-8.0); Protein,Urine 2+ (Negative); RBC,Urine 5 /hpf (0-5); Specific Gravity,Urine 1.033 (1.001-1.035); Squamous Epithelial Cell,Urine 10 /hpf (0-4); WBC,Urine 18 /hpf (0-5)
[2024-07-08 13:09] LABS: Amphetamine Screen,Urine Not Detected (NotDetected); Barbiturate Screen,Urine Not Detected (NotDetected); Benzodiazepines Screen,Urine Detected (NotDetected); Cocaine Screen,Urine Not Detected (NotDetected); Methadone Screen, Urine Not Detected (NotDetected); Opiate Screen,Urine Not Detected (NotDetected); Oxycodone Screen, Urine Not Detected (NotDetected); Phencyclidine Screen,Urine Not Detected (NotDetected); Tricyclic Antidepressant,Urine Not Detected (NotDetected); Urn Cannabinoid Scrn Not Detected (NotDetected)
[2024-07-08 13:10] LABS: Lipase 2779 U/L (23-300)
[2024-07-08 13:14] LABS: Platelet Count 80 k/uL (150-450)
[2024-07-08 13:15] LABS: RBC Morphology Normal
[2024-07-08] MEDS ORDERED: NALOXONE 0.4 MG/ML 1 ML VIAL IV PRN (13:15)
[2024-07-08] MEDS ORDERED: cloNIDine HCL 0.1 MG TAB PO PRN (13:34)
[2024-07-08] MEDS ORDERED: Magnesium Replacement Protocol 1 EACH MISC MISCELLANE PRN (13:34)
[2024-07-08] MEDS ORDERED: Potassium Replacement Protocol 1 EACH MISC MISCELLANE PRN (13:34)
[2024-07-08] MEDS: LORazepam 2 MG/ML INJ IV PRN ×2 (14:00→20:15)
[2024-07-08] MEDS: PANTOPRAZOLE 40 MG TABLET PO SCH (14:01)
[2024-07-08] MEDS: THIAMINE 100 MG/ML 2 ML VIAL IM STA (14:01)
[2024-07-08] MEDS: POTASSIUM CHLORIDE ER 20 MEQ TAB.ER PO STA (14:01)
[2024-07-08] MEDS: MAGNESIUM SULFATE-D5W PMX 1 GM in DEXTROSE/WATER 1 100ML.BAG IVPB SCH (14:01)
[2024-07-08] MEDS: SODIUM CHLORIDE 0.9% 1,000 ML IV SCH (14:02)
[2024-07-08] MEDS: cloNIDine HCL 0.1 MG TAB PO SCH (14:08)
[2024-07-08] MEDS: DEXMEDETOMIDINE/0.9% NACL(PMX) 400 MCG in EMPTY BAG 1 BAG IV SCH (17:46)
[2024-07-08 18:13] LABS: Glucose,Whole Blood 128 mg/dL (70-110)
--- NOTE | 2024-07-08 23:55 | HP ---
HISTORY AND PHYSICAL CHIEF COMPLAINT: Alcohol withdrawal. HISTORY OF PRESENT ILLNESS: This is a 43-year-old woman with past medical history of multiple medical problems, was checked into [facility] yesterday. The patient drinks about 2 packs a day and the patient had significant withdrawal symptoms today with shaking and unsteady gait. The patient came to [facility] and admitted for further evaluation and treatment. The patient has some hallucinations also. The patient is originally from [place]. The patient has multiple electrolyte abnormalities also. PAST MEDICAL HISTORY: Reviewed. PAST MEDICAL HISTORY: History of hypertension. SOCIAL HISTORY: History of vaping, alcohol. REVIEW OF SYSTEMS: A 14-point review is negative except as mentioned earlier. HOME MEDICATIONS: None. PHYSICAL EXAMINATION: VITAL SIGNS: Pulse is 83, blood pressure 135/84, respirations 18. HEENT: Conjunctivae normal. NECK: No JVD. CARDIOVASCULAR: S1, S2. RESPIRATIONS: Breath sounds diminished at the bases. A few scattered rhonchi. ABDOMEN: Soft. LEGS: No edema. NERVOUS SYSTEM: Diffuse tremors present, status post amputation of hand. LABORATORY DATA: Sodium 130, potassium 3. Rest of the labs are noted. ASSESSMENT: 1. Severe acute delirium tremens and alcohol withdrawal. 2. Hypokalemia. 3. History of hypertension. 4. Multiple complex medical issues. RECOMMENDATIONS AND DISCUSSION: This is a 43-year-old woman admitted with multiple complex medical issues, we will monitor the patient closely. Continue current medications. Continue symptomatic treatment. Otherwise, at this time, CIWA protocol. I would also add Librium to the current regimen. We will continue with IV fluids and I would also recommend monitor lytes and correct lytes also. Monitor the blood pressure closely. Guarded prognosis because of multiple complex medical issues. Further recommendations to follow. MMODL / IJN: [id number] /
--- NOTE | 2024-07-09 06:25 | P.CNPUL ---
History of Present Illness Consult date: 07/09/24 Requesting physician: Yovani Matos Reason for consult: other (Alcohol withdrawal delirium tremens and ICU management) Chief complaint: Hallucinations History of present illness: Patient is a 43-year-old female with past medical history significant for alcoholism. She reportedly drinks 2/5 of [employer] shops per day, as well as, some unspecified amount of beer. Has been drinking heavily for the last 5 years. She is from [place], [place]. Originally, presented to [facility] yesterday for rehab. Her last drink was the morning prior. She was exhibiting significant withdrawal symptoms and was transferred here to the ED. While in the emergency department she received a total of 15 mg of Ativan, and was subsequently started on a Precedex infusion. For this reason, she was admitted to the intensive care unit. I am evaluating this patient in room 265. She is resting comfortably and sleeping. She does awaken easily. She is alert and oriented. No current distress. She states that she does have a headache, some nausea without vomiting, there are visible tremors, no diaphoresis. There is a bedside sitter. Her current CIWA scored at 13. The nurses have previously stopped the patient's Precedex. Patient was having episodes of bradycardia while on the infusion, as low as 40 bpm. She continues on CIWA protocol with Ativan as needed. Patient denies any previous history of esophageal varices or GI bleeding. She does admit previous alcohol withdrawal symptoms. Denies any previous seizure history. CBC: WBC count 7.3, hemoglobin 13.8, hematocrit 40.7, platelets low at 80,000. CMP: Sodium 134, potassium 3 and up to 4.1 with supplementation, chloride 97, serum bicarb 24, BUN 15, creatinine 0.82, glucose 112. Magnesium was low at 1.3 and will be replaced. LFTs unremarkable. Total blii 2.4. Lipase 2779. Patient denies any abdominal pain. Admits mild nausea without vomiting, denies diarrhea, denies abdominal pain. Appears euvolemic without signs of organ dysfunction. Normal saline is infusing at 75 mL/h. Urinalysis appears to be contaminated. Patient denies any urinary symptoms such as dysuria or burning or flank pain. Urine toxicology screen negative except for benzodiazepines which were given in the emergency department. Serum alcohol level was less than 10 on arrival. Current vitals: Heart rate 60 bpm, blood pressure 137/85 mmHg, SpO2 96% on room air, nontachypneic. Review of Systems Constitutional: Reports poor appetite, Reports sweats, Denies chills, Denies fatigue, Denies fever, Denies weight gain, Denies weight loss Ears, nose, mouth and throat: Reports headache, Denies nasal congestion, Denies nasal discharge, Denies post-nasal drip, Denies sinus pain, Denies sinus pressure, Denies sore throat Respiratory: Denies congestion, Denies cough, Denies dyspnea, Denies excessive sputum, Denies hemoptysis, Denies wheezing Gastrointestinal: Reports loss of appetite, Reports nausea, Denies abdominal pain, Denies constipation, Denies diarrhea, Denies hematemesis, Denies hematochezia, Denies melena, Denies vomiting Genitourinary: Denies dysuria, Denies flank pain, Denies hematuria, Denies urinary frequency Musculoskeletal: Denies limitation of motion Integumentary: Denies rash Neurological: Reports headaches, Reports memory loss, Reports paresthesias, Reports tremors, Reports weakness, Denies change in speech, Denies head injury, Denies paralysis, Denies seizures, Denies syncope, Denies visual changes Psychiatric: Reports anxiety, Reports depression, Denies suicidal ideation Past Medical History Past Medical History: Hypertension Additional Past Medical History / Comment(s): 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 alcoholic. History of Any Multi-Drug Resistant Organisms: None Reported Past Surgical History: No Surgical Hx Reported Past Psychological History: No Psychological Hx Reported Smoking Status: Vaper Past Alcohol Use History: Abuse, Daily, Heavy Past Drug Use History: None Reported Medications and Allergies Home Medications Medication Instructions Recorded Confirmed Type Acetaminophen Tab [Tylenol] 650 mg PO Q4H PRN 07/08/24 07/08/24 History Budesonide/Formoterol Fumarate 2 puff INHALATION RT-BID 07/08/24 07/08/24 History [Symbicort 80-4.5 Mcg Inhaler] Calcium Phos/D3/Magnesium/Zinc 1 tab PO TID PRN 07/08/24 07/08/24 History [Grliamq-Pse-Oqtd-Vitamin D3] Chlorpheniramine Maleate 4 mg PO Q4H PRN 07/08/24 07/08/24 History [Chlor-Trimeton] DULoxetine HCL [Cymbalta] 20 mg PO DAILY 07/08/24 07/08/24 History Famotidine [Pepcid] 20 mg PO DAILY 07/08/24 07/08/24 History Hyoscyamine Sulfate [Levsin] 0.125 mg PO QID PRN 07/08/24 07/08/24 History LORazepam [Ativan] 1 - 2 mg PO Q4H 07/08/24 07/08/24 History Loperamide HCl [Imodium A-D] 4 mg PO QID PRN 07/08/24 07/08/24 History Mag Hydrox/Aluminum Hyd/Simeth 30 ml PO Q4H PRN 07/08/24 07/08/24 History [Mylanta Maximum Strength Liq] Magnesium Hydroxide [Milk of 2,400 mg PO BID PRN 07/08/24 07/08/24 History Magnesia] Mirtazapine [Remeron] 15 mg PO HS 07/08/24 07/08/24 History Multivitamins, Thera [Multivitamin 1 tab PO DAILY 07/08/24 07/08/24 History (formulary)] Naproxen [Naprosyn] 500 mg PO BID PRN 07/08/24 07/08/24 History Pregabalin [Lyrica] 150 mg PO BID 07/08/24 07/08/24 History Thiamine [Vitamin B-1] 100 mg PO DAILY 07/08/24 07/08/24 History atenoloL [Tenormin] 50 mg PO HS 07/08/24 07/08/24 History busPIRone HCl [Buspar] 10 mg PO BID 07/08/24 07/08/24 History cloNIDine HCL [Catapres] 0.1 - 0.3 mg PO Q4H PRN 07/08/24 07/08/24 History ondansetron HCL [Zofran] 8 mg PO Q6H PRN 07/08/24 07/08/24 History Allergies Allergy/AdvReac Type Severity Reaction Status Date / Time No Known Allergies Allergy Verified 07/08/24 14:02 Physical Exam Vitals: Vital Signs Temp Pulse Resp BP Pulse Ox 07/08/24 23:00 41 L 12 162/101 98 07/08/24 22:00 50 L 12 149/87 96 07/08/24 21:00 56 L 14 144/84 98 07/08/24 20:00 98.2 F 60 18 133/84 98 07/08/24 19:00 69 12 133/78 94 L 07/08/24 18:40 18 137/76 07/08/24 18:30 16 07/08/24 18:20 98.4 F 84 16 143/82 96 07/08/24 17:41 79 18 147/95 98 07/08/24 17:12 67 18 138/97 97 07/08/24 16:44 72 26 H 151/81 98 07/08/24 14:26 99 18 152/90 98 07/08/24 13:08 83 18 135/81 97 07/08/24 11:34 98.3 F 101 H 18 142/100 99 Intake and Output 07/08/24 07/08/24 07/09/24 14:59 22:59 06:59 Intake Total 360.756 75 Output Total 700 Balance 360.756 -625 Intake: IV 300 75 Sodium Chloride 0.9% 1, 300 75 000 ml @ 75 mls/hr IV . [id number] [facility] Rx#:[id number] Intake, IV Titration 60.756 Amount Dexmedetomidine/0.9% NaCl 60.756 (Pmx) 400 mcg In Empty Bag 1 bag @ 0.2 MCG/KG/HR 3.289 mls/hr IV .Q24H [facility] Rx#:[id number] Output: Urine 700 Other: Weight 65.771 kg GENERAL EXAM: Alert, 43-year-old white female, alert and oriented, calm and nondistressed, visible resting tremors, nondiaphoretic, answers questions appropriately. HEAD: Normocephalic and atraumatic EYES: Normal reaction of pupils, equal size. NOSE: Clear with pink turbinates. THROAT: No erythema or exudates. Upper dentures NECK: No masses, no JVD. CHEST: No chest wall deformity. LUNGS: Equal air entry with no crackles, wheeze, rhonchi or dullness. On room air. No conversational dyspnea or accessory muscle use.. CVS: S1 and S2 normal with no audible murmur, regular rhythm. No extra heart sounds ABDOMEN: Flat abdomen, active bowel sounds, no hepatosplenomegaly, no guarding or rigidity. No flank bruising or periumbilical ecchymosis SPINE: No scoliosis or deformity SKIN: No rashes, nonjaundiced CENTRAL NERVOUS SYSTEM: No focal deficits, tone is normal in all 4 extremities. CIWA currently 13 EXTREMITIES: There is no peripheral edema, clubbing, or cyanosis. Peripheral pulses are intact. Congenitally missing right upper extremity, Results - Laboratory Findings CBC and BMP: 07/08/24 12:29 07/08/24 18:43 Abnormal lab findings: Abnormal Labs 07/08/24 07/08/24 07/08/24 12:29 12:29 12:29 Plt Count 80 L Sodium 134 L Potassium 3.0 L Chloride 97 L Glucose 112 H POC Glucose (mg/dL) Magnesium 1.3 L Total Bilirubin 2.4 H AST 71 H Lipase 2779 H Urine Appearance Cloudy H Urine Protein 2+ H Urine Ketones 1+ H Urine Blood Moderate H Urine Nitrite Positive H Ur Leukocyte Esterase Small H Urine WBC 18 H Ur Squamous Epith Cells 10 H Urine Bacteria Moderate H Urine Mucus Many H U Benzodiazepines Scrn Detected H 07/08/24 18:12 Plt Count Sodium Potassium Chloride Glucose POC Glucose (mg/dL) 128 H Magnesium Total Bilirubin AST Lipase Urine Appearance Urine Protein Urine Ketones Urine Blood Urine Nitrite Ur Leukocyte Esterase Urine WBC Ur Squamous Epith Cells Urine Bacteria Urine Mucus U Benzodiazepines Scrn Assessment and Plan Assessment: Alcohol withdrawal delirium tremens, patient received multiple doses of Ativan while in the emergency department, total of 15 mg, subsequently started on a Precedex infusion and admitted to the intensive care unit for this reason. Patient is currently resting comfortably, Precedex infusion has since been discontinued as the patient became bradycardic. Most recent CIWA score at 13. History of chronic alcoholism, reportedly drinks 2/5 of [id number] shops per day, as well as, an unspecified amount of beer. Pancreatitis, acute versus chronic, with known history of chronic alcohol abuse. Lipase was elevated at 2779. Does not meet SIRS criteria, appears euvolemic without organ dysfunction Hypokalemia, replace per protocol Hypomagnesemia, replace per protocol Thrombocytopenia, possibly secondary to chronic alcohol misuse History of hypertension Chronic nicotine dependence, reportedly vapes Congenital defect of right upper extremity Plan: Patient was admitted to the intensive care unit, chiefly for alcohol withdrawal delirium tremens Continue to monitor CIWA per protocol Continue Ativan as needed, would consider as needed Haldol for breakthrough delirium Precedex will be discontinued as the patient was significantly bradycardic while on this medication Continue seizure precautions Continue to monitor and replace electrolytes per protocol Vitamin B1 supplementation Monitor pancreatic enzymes Continue IV maintenance fluids Start patient on clear liquid diet and advance as tolerated Patient is requesting a nicotine patch DVT prophylaxis: Deferred as patient is thrombocytopenic GI prophylaxis: Protonix We will continue to follow this patient while in intensive care unit I have personally seen and examined the patient, performed the documentation and the assessment and plan as written. Number of minutes spent on the visit:20 Time with Patient: Greater than 30
[2024-07-09 06:55] LABS: Basophils % (A) 1 %; Eosinophils # (A) 0.2 k/uL (0-0.7); Eosinophils % (A) 6 %; HCT 33.6 % (34.0-46.0); HGB 11.2 gm/dL (11.4-16.0); Lymphocytes # (A) 1.3 k/uL (1.0-4.8); Lymphocytes % (A) 35 %; MCH 33.3 pg (25.0-35.0); MCHC 33.2 g/dL (31.0-37.0); Mean Platelet Volume 9.1; Monocytes # (A) 0.2 k/uL (0-1.0); Monocytes % (A) 5 %; Neutrophils % (A) 53 %; RBC 3.36 m/uL (3.80-5.40); RDW 12.4 % (11.5-15.5); WBC 3.8 k/uL (3.8-10.6)
[2024-07-09 07:05] LABS: MCV 100.2 fL (80.0-100.0); Platelet Count 57 k/uL (150-450)
[2024-07-09 07:08] LABS: ALT 17 U/L (4-34); AST 53 U/L (14-36); African American GFR (CKD) >90 (>60 ml/min/1.73 sqM); Albumin 3.3 g/dL (3.5-5.0); Alkaline Phosphatase 78 U/L (38-126); Amylase 56 U/L (30-110); Anion Gap 6 mmol/L; Blood Urea Nitrogen 11 mg/dL (7-17); Calcium 8.5 mg/dL (8.4-10.2); Carbon Dioxide 21 mmol/L (22-30); Chloride 108 mmol/L (98-107); Glucose 84 mg/dL (74-99); Lipase 1560 U/L (23-300); Magnesium 1.8 mg/dL (1.6-2.3); Non-African American GFR(CKD) >90 (>60 ml/min/1.73 sqM); Potassium 3.7 mmol/L (3.5-5.1); Sodium 135 mmol/L (137-145); Total Bilirubin 1.2 mg/dL (0.2-1.3); Total Protein 5.7 g/dL (6.3-8.2)
[2024-07-09] MEDS: THIAMINE 100 MG TAB PO SCH (08:28)
[2024-07-09] MEDS: NICOTINE 21MG/24HR PATCH TRANSDERM SCH (08:28)
[2024-07-09] MEDS: POTASSIUM CHLORIDE ER 20 MEQ TAB.ER PO SCH (08:28)
[2024-07-09] MEDS: MAGNESIUM SULFATE-D5W PMX 1 GM in DEXTROSE/WATER 1 100ML.BAG IVPB ONE (08:53)
[2024-07-09] MEDS: LORazepam 1 MG TAB PO PRN (08:53)
[2024-07-09] MEDS: ONDANSETRON 4 MG/2 ML VIAL IVP PRN (08:53)
[2024-07-09 11:12] LABS: Appearance,Urine Cloudy (Clear); Bacteria,Urine Occasional /hpf; Bilirubin,Urine Negative (Negative); Blood,Urine Large (Negative); Color,Urine Light Red; Glucose,Urine (UA) Negative (Negative); Ketones,Urine 1+ (Negative); Leukocyte Esterase,Urine Large (Negative); Mucus,Urine Moderate /hpf; Nitrite,Urine Negative (Negative); Protein,Urine 1+ (Negative); RBC,Urine 4 /hpf (0-5); Specific Gravity,Urine 1.019 (1.001-1.035); Squamous Epithelial Cell,Urine 13 /hpf (0-4); WBC,Urine 11 /hpf (0-5)
[2024-07-09] MEDS: LORazepam 2 MG/ML INJ IV PRN (12:03)
[2024-07-09] MEDS: KETOROLAC 15 MG/ML 1 ML VIAL IVP PRN (15:54)
[2024-07-09] MEDS: LOPERAMIDE 2 MG CAP PO PRN (18:05)
--- NOTE | 2024-07-09 18:46 | PN ---
PROGRESS NOTE DATE OF SERVICE: 07/09/2024 This 43-year-old woman was admitted with significant alcohol withdrawal, was on Precedex drip last night. The patient has still significant tremors and withdrawal symptoms also. The patient is closely monitored in ICU at this time. UA was cloudy and with large leukocyte esterase but not much wbc's. PAST MEDICAL HISTORY: Reviewed. REVIEW OF SYSTEMS: Fourteen-point review of systems is negative except as mentioned earlier. MEDICATIONS: Reviewed. PHYSICAL EXAM: VITAL SIGNS: Pulse is 55, blood pressure ntd, respirations 16. HEENT: Conjunctivae normal. NECK: No JVD. CARDIOVASCULAR: S1, S2. RESPIRATIONS: A few scattered rhonchi. ABDOMEN: Soft. LEGS: No edema. NERVOUS SYSTEM: Nonfocal. LABS: Reviewed. ASSESSMENT: 1. Severe acute delirium tremens and alcohol withdrawal. 2. Hypokalemia. 3. History of hypertension. 4. Multiple complex medical issues. 5. Rule out acute urinary tract infection. RECOMMENDATION: Recommend to continue current management and symptomatic treatment. The patient also had possible acute pancreatitis present on admission. Otherwise, I would recommend continue with current medications, symptomatic treatment. Continue with CIWA protocol. Guarded prognosis. Further recommendations to follow. MMODL / IJN: [id number] / MTDAnum
[2024-07-09] MEDS: MELATONIN 3 MG TABLET PO SCH (21:07)
[2024-07-09] MEDS: NICOTINE 21MG/24HR PATCH TRANSDERM STA (21:07)
[2024-07-09] MEDS: BUTALB/APAP/CAFF 50-325-40MG TAB PO PRN (22:03)
[2024-07-10 03:31] LABS: Basophils % (A) 0 %; Eosinophils # (A) 0.1 k/uL (0-0.7); Eosinophils % (A) 4 %; HCT 31.7 % (34.0-46.0); HGB 10.9 gm/dL (11.4-16.0); Lymphocytes # (A) 1.1 k/uL (1.0-4.8); Lymphocytes % (A) 34 %; MCH 33.5 pg (25.0-35.0); MCHC 34.4 g/dL (31.0-37.0); MCV 97.5 fL (80.0-100.0); Mean Platelet Volume 9.2; Monocytes # (A) 0.2 k/uL (0-1.0); Monocytes % (A) 5 %; Neutrophils # (A) 1.8 k/uL (1.3-7.7); Neutrophils % (A) 55 %; RBC 3.25 m/uL (3.80-5.40); RDW 12.7 % (11.5-15.5); WBC 3.3 k/uL (3.8-10.6)
[2024-07-10 03:44] LABS: Platelet Count 45 k/uL (150-450)
[2024-07-10 03:47] LABS: ALT 16 U/L (4-34); AST 45 U/L (14-36); African American GFR (CKD) >90 (>60 ml/min/1.73 sqM); Albumin 3.2 g/dL (3.5-5.0); Alkaline Phosphatase 86 U/L (38-126); Anion Gap 6 mmol/L; Blood Urea Nitrogen 6 mg/dL (7-17); Calcium 8.6 mg/dL (8.4-10.2); Carbon Dioxide 21 mmol/L (22-30); Chloride 108 mmol/L (98-107); Glucose 115 mg/dL (74-99); Magnesium 1.7 mg/dL (1.6-2.3); Non-African American GFR(CKD) >90 (>60 ml/min/1.73 sqM); Potassium 3.4 mmol/L (3.5-5.1); Sodium 135 mmol/L (137-145); Total Bilirubin 0.9 mg/dL (0.2-1.3); Total Protein 5.7 g/dL (6.3-8.2)
[2024-07-10] MEDS ORDERED: MAGNESIUM SULFATE-D5W PMX 1 GM in DEXTROSE/WATER 1 100ML.BAG IVPB ONE (04:09)
[2024-07-10] MEDS ORDERED: Potassium Replacement Protocol 1 EACH MISC MISCELLANE PRN (05:42)
[2024-07-10] MEDS: HYDROcodone/APAP 5-325MG 1 EACH TAB PO PRN (05:48)
[2024-07-10] MEDS: POTASSIUM CHLORIDE ER 20 MEQ TAB.ER PO SCH (05:48)
[2024-07-10] MEDS: MAGNESIUM SULFATE-D5W PMX 1 GM in DEXTROSE/WATER 1 100ML.BAG IVPB ONE (05:48)
[2024-07-10] MEDS: diphenhydrAMINE 25 MG CAP PO PRN (05:49)
[2024-07-10] MEDS: LORazepam 0.5 MG TAB PO PRN (08:06)
[2024-07-10 08:29] VITALS: BP 138/102; PULSE 75; RESP 13; TEMP 98.1
[2024-07-10] MEDS: MULTIVITAMINS, THERA 1 EACH TAB PO SCH (11:12)
--- NOTE | 2024-07-10 11:43 | P.PN ---
Subjective Progress Note Date: 07/10/24 Principal diagnosis: Alcohol withdrawal delirium tremens, Patient is a 43-year-old female with past medical history significant for alcoholism. She reportedly drinks 2/5 of [employer] shops per day, as well as, some unspecified amount of beer. Has been drinking heavily for the last 5 years. She is from [place], [place]. Originally, presented to [facility] yesterday for rehab. Her last drink was the morning prior. She was exhibiting significant withdrawal symptoms and was transferred here to the ED. While in the emergency department she received a total of 15 mg of Ativan, and was subsequently started on a Precedex infusion. For this reason, she was admitted to the intensive care unit. I am evaluating this patient in room 265. She is resting comfortably and sleeping. She does awaken easily. She is alert and oriented. No current distress. She states that she does have a headache, some nausea without vomiting, there are visible tremors, no diaphoresis. There is a bedside sitter. Her current CIWA scored at 13. The nurses have previously stopped the patient's Precedex. Patient was having episodes of bradycardia while on the infusion, as low as 40 bpm. She continues on CIWA protocol with Ativan as needed. Patient denies any previous history of esophageal varices or GI bleeding. She does admit previous alcohol withdrawal symptoms. Denies any previous seizure history. CBC: WBC count 7.3, hemoglobin 13.8, hematocrit 40.7, platelets low at 80,000. CMP: Sodium 134, potassium 3 and up to 4.1 with supplementation, chloride 97, serum bicarb 24, BUN 15, creatinine 0.82, glucose 112. Magnesium was low at 1.3 and will be replaced. LFTs unremarkable. Total blii 2.4. Lipase 2779. Patient denies any abdominal pain. Admits mild nausea without vomiting, denies diarrhea, denies abdominal pain. Appears euvolemic without signs of organ dysfunction. Normal saline is infusing at 75 mL/h. Urinalysis appears to be contaminated. Patient denies any urinary symptoms such as dysuria or burning or flank pain. Urine toxicology screen negative except for benzodiazepines which were given in the emergency department. Serum alcohol level was less than 10 on arrival. Current vitals: Heart rate 60 bpm, blood pressure 137/85 mmHg, SpO2 96% on room air, nontachypneic. Patient was evaluated today on 07/10/2024, patient remains in the ICU, she is fairly well-controlled with Ativan as needed, patient remains on the CIWA protocol, she has positive urine cultures but the patient has no symptoms, asymptomatic bacteriuria. Patient has no shortness of breath no cough no wheezing denies any abdominal pain nausea or vomiting denies any dysuria frequency urgency or hematuria. Hence I will plan to transfer the patient out of the ICU to medical surgical floor, could even be considered for discharge back to [facility]. Objective - Vital Signs Vital signs: Vital Signs Temp 98.1 F 07/10/24 08:00 Pulse 75 07/10/24 08:00 Resp 13 07/10/24 08:00 BP 138/102 07/10/24 08:00 Pulse Ox 97 07/10/24 00:00 FiO2 Intake & Output 07/09/24 07/10/24 07/10/24 18:59 06:59 18:59 Intake Total 1360 1645 450 Output Total 1600 1400 740 Balance -240 245 -290 Weight 83.3 kg Intake: IV 900 925 150 Magnesium Sulfate-D5w Pmx 100 1 gm In Dextrose/Water 1 100ml.bag @ 100 mls/hr IVPB ONCE ONE Rx#: [id number] Sodium Chloride 0.9% 1, 900 825 150 000 ml @ 75 mls/hr IV . [id number] [facility] Rx#:[id number] Intake, IV Titration 100 Amount Magnesium Sulfate-D5w Pmx 100 1 gm In Dextrose/Water 1 100ml.bag @ 100 mls/hr IVPB ONCE ONE Rx#: [id number] Oral 360 720 300 Output: Urine 1600 1400 740 Other: Voiding Method Bedside Commode Bedside Commode Bedside Commode # Voids 1 # Bowel Movements 1 - Exam GENERAL EXAM: 43-year-old female in no distress, on room air HEAD: Normocephalic and atraumatic EYES: Normal reaction of pupils, equal size. NOSE: Clear with pink turbinates. THROAT: No erythema or exudates. Upper dentures NECK: No masses, no JVD. CHEST: No chest wall deformity. LUNGS: Clear bilaterally no crackles rhonchi or wheezes CVS: S1 and S2 normal with no audible murmur, regular rhythm. No extra heart sounds ABDOMEN: Flat abdomen, active bowel sounds, no hepatosplenomegaly, no guarding or rigidity. No flank bruising or periumbilical ecchymosis SKIN: No rashes, nonjaundiced CENTRAL NERVOUS SYSTEM: Alert oriented x 3 no focal deficit EXTREMITIES: No clubbing edema or cyanosis - Labs CBC & Chem 7: 07/10/24 03:06 07/10/24 03:06 Labs: Abnormal Lab Results - Last 24 Hours (Table) 07/09/24 07/10/24 07/10/24 Range/Units 06:09 03:06 03:06 WBC 3.3 L (3.8-10.6) k/uL RBC 3.25 L (3.80-5.40) m/uL Hgb 10.9 L (11.4-16.0) gm/dL Hct 31.7 L (34.0-46.0) % Plt Count 45 L (150-450) k/uL Sodium 135 L (137-145) mmol/L Potassium 3.4 L (3.5-5.1) mmol/L Chloride 108 H (98-107) mmol/L Carbon Dioxide 21 L (22-30) mmol/L BUN 6 L (7-17) mg/dL Glucose 115 H (74-99) mg/dL AST 45 H (14-36) U/L Total Protein 5.7 L (6.3-8.2) g/dL Albumin 3.2 L (3.5-5.0) g/dL Triglycerides 171.00 H (0.00-149.00) mg/dL Microbiology - Last 24 Hours (Table) 07/08/24 12:29 Urine Culture - Preliminary Urine,Voided Gram Neg Bacilli 07/08/24 14:26 Blood Culture - Preliminary Blood Assessment and Plan Assessment: Impression: Alcohol withdrawal delirium tremens, significantly improved, did not require Precedex infusion History of chronic alcoholism, reportedly drinks 2/5 of [id number] shops per day, as well as, an unspecified amount of beer. Pancreatitis, acute versus chronic, with known history of chronic alcohol abuse. Lipase was elevated at 2779. Does not meet SIRS criteria, appears euvolemic without organ dysfunction Hypokalemia, replace per protocol Hypomagnesemia, replace per protocol Thrombocytopenia, possibly secondary to chronic alcohol misuse History of hypertension Congenital defect of right upper extremity Recommendation: Transfer patient out of the ICU to medical surgical floor Continue CIWA protocol Continue present supportive care measures Consider sending the patient back to [place] in the next 24 hours. Will continue to follow Time with Patient: Less than 30
--- NOTE | 2024-07-10 12:24 | P.DS ---
Providers Date of admission: 07/08/24 12:51 Expected date of discharge: 07/10/24 Attending physician: Ramona Vee Consults: 07/08/24 17:25 Consult Physician Routine Consulting Provider: Rikki Jackson Consult Reason/Comments: ICU Do you want consulting provider notified?: Already Contacted Primary care physician: Stated None Hospital Course: Final diagnosis Severe acute delirium tremens with alcohol withdrawal Hypokalemia, improved History of hypertension Continued ongoing alcohol abuse, was at [facility] Possible urinary tract infection, ruled out, patient denying any symptoms of pain, burning, or urinary frequency GI prophylaxis DVT prophylaxis Full code Discharge disposition Patient is being discharged in a stable condition with guarded prognosis to [facility] for continued inpatient alcohol rehab. Patient will follow-up with primary care provider in the [place] area in the outpatient setting upon discharge. Patient to follow-up with [facility] outpatient as well. Patient is to continue with Librium taper and complete alcohol abstinence. Total time taken is greater than 35 minutes. Hospital course This is a 43-year-old female who was recently admitted with EtOH abuse and withdrawal requiring Precedex drip being closely monitored in the ICU overnight. Patient off Precedex maintained on p.o. Ativan along with Librium taper doing well and would like to return to [facility]. Patient has been cleared by consultations including magnetic tape composer operator and will be returning to [facility] for continued alcohol rehab. Patient will continue on Librium taper along with as needed Ativan and has been instructed to follow-up with primary care provider on discharge along with [facility] outpatient. Currently no reports of chest pain, shortness of breath, or palpitations. Patient is afebrile. No reports of nausea or vomiting and patient is tolerating diet. Patient will be going to [facility] inpatient alcohol rehab for continued rehab services. Overall guarded prognosis. Physical exam: Gen: This is a 43-year-old female who is awake, alert and oriented x 3, well- developed, well-nourished HEENT: Head is atraumatic, normocephalic. Pupils equal, round. Sclerae is anicteric. NECK: Supple. No JVD. No lymphadenopathy. No thyromegaly. LUNGS: Clear to auscultation. No wheezes or rhonchi. No intercostal retractions. HEART: Regular rate and rhythm. No murmur. ABDOMEN: Soft. Bowel sounds are present. No masses. No tenderness. EXTREMITIES: No pedal edema. No calf tenderness. NEUROLOGICAL: Patient is awake, alert and oriented x3. Cranial nerves 2 through 12 are grossly intact. Please refer to medication reconciliation sheet for a list of medications. The impression and plan of care has been dictated by Luda Gamino, Nurse Practitioner as directed. Dr. Mariusz MD I have performed a history and examination and MDM of this patient, discussed the same with the dictator, and agree with the dictator's assessment and plan as written ,documented as a scribe. Based on total visit time, I have performed more than 50% of the visit. Patient Condition at Discharge: Fair Plan - Discharge Summary Discharge Rx Participant: No New Discharge Prescriptions: New chlordiazePOXIDE HCl [Librium] 20 mg PO TID #12 cap Pantoprazole [Protonix] 40 mg PO AC-BRKFST tab cloNIDine HCL [Catapres] 0.1 mg PO BID tab cloNIDine HCL [Catapres] 0.1 mg PO Q4HR PRN tab PRN Reason: Hypertension Cyclobenzaprine [Flexeril] 5 mg PO TID PRN #6 tab PRN Reason: Mild Spasms Nicotine 21Mg/24Hr Patch [Habitrol] 1 patch TRANSDERM DAILY patch Melatonin 6 mg PO HS tab Continue ondansetron HCL [Zofran] 8 mg PO Q6H PRN PRN Reason: Nausea And Vomiting Thiamine [Vitamin B-1] 100 mg PO DAILY Mirtazapine [Remeron] 15 mg PO HS Multivitamins, Thera [Multivitamin (formulary)] 1 tab PO DAILY Magnesium Hydroxide [Milk of Magnesia] 2,400 mg PO BID PRN PRN Reason: Gi Upset Loperamide HCl [Imodium A-D] 4 mg PO QID PRN PRN Reason: Loose Stool Chlorpheniramine Maleate [Chlor-Trimeton] 4 mg PO Q4H PRN PRN Reason: Allergy Symptoms LORazepam [Ativan] 1 - 2 mg PO Q4H Budesonide/Formoterol Fumarate [Symbicort 80-4.5 Mcg Inhaler] 2 puff INHALATION RT-BID DULoxetine HCL [Cymbalta] 20 mg PO DAILY Acetaminophen Tab [Tylenol] 650 mg PO Q4H PRN PRN Reason: Fever And/ Or Pain Mag Hydrox/Aluminum Hyd/Simeth [Mylanta Maximum Strength Liq] 30 ml PO Q4H PRN PRN Reason: Gi Upset Hyoscyamine Sulfate [Levsin] 0.125 mg PO QID PRN PRN Reason: Gi Upset Famotidine [Pepcid] 20 mg PO DAILY Calcium Phos/D3/Magnesium/Zinc [Jbkelqw-Qep-Ooog-Vitamin D3] 1 tab PO TID PRN PRN Reason: Supplement Pregabalin [Lyrica] 150 mg PO BID Naproxen [Naprosyn] 500 mg PO BID PRN PRN Reason: Pain busPIRone HCl [Buspar] 10 mg PO BID atenoloL [Tenormin] 50 mg PO HS Discontinued cloNIDine HCL [Catapres] 0.1 - 0.3 mg PO Q4H PRN PRN Reason: BP > 160/100 Discharge Medication List Acetaminophen Tab [Tylenol] 650 mg PO Q4H PRN 07/08/24 [History] Budesonide/Formoterol Fumarate [Symbicort 80-4.5 Mcg Inhaler] 2 puff INHALATION RT-BID 07/08/24 [History] Calcium Phos/D3/Magnesium/Zinc [Katxxhl-Ych-Nucc-Vitamin D3] 1 tab PO TID PRN 07/08/24 [History] Chlorpheniramine Maleate [Chlor-Trimeton] 4 mg PO Q4H PRN 07/08/24 [History] DULoxetine HCL [Cymbalta] 20 mg PO DAILY 07/08/24 [History] Famotidine [Pepcid] 20 mg PO DAILY 07/08/24 [History] Hyoscyamine Sulfate [Levsin] 0.125 mg PO QID PRN 07/08/24 [History] LORazepam [Ativan] 1 - 2 mg PO Q4H 07/08/24 [History] Loperamide HCl [Imodium A-D] 4 mg PO QID PRN 07/08/24 [History] Mag Hydrox/Aluminum Hyd/Simeth [Mylanta Maximum Strength Liq] 30 ml PO Q4H PRN 07/08/24 [History] Magnesium Hydroxide [Milk of Magnesia] 2,400 mg PO BID PRN 07/08/24 [History] Mirtazapine [Remeron] 15 mg PO HS 07/08/24 [History] Multivitamins, Thera [Multivitamin (formulary)] 1 tab PO DAILY 07/08/24 [History] Naproxen [Naprosyn] 500 mg PO BID PRN 07/08/24 [History] Pregabalin [Lyrica] 150 mg PO BID 07/08/24 [History] Thiamine [Vitamin B-1] 100 mg PO DAILY 07/08/24 [History] atenoloL [Tenormin] 50 mg PO HS 07/08/24 [History] busPIRone HCl [Buspar] 10 mg PO BID 07/08/24 [History] ondansetron HCL [Zofran] 8 mg PO Q6H PRN 07/08/24 [History] Cyclobenzaprine [Flexeril] 5 mg PO TID PRN #6 tab 07/10/24 [Rx] Melatonin 6 mg PO HS tab 07/10/24 [Rx] Nicotine 21Mg/24Hr Patch [Habitrol] 1 patch TRANSDERM DAILY patch 07/10/24 [Rx] Pantoprazole [Protonix] 40 mg PO AC-BRKFST tab 07/10/24 [Rx] chlordiazePOXIDE HCl [Librium] 20 mg PO TID #12 cap 07/10/24 [Rx] cloNIDine HCL [Catapres] 0.1 mg PO BID tab 07/10/24 [Rx] cloNIDine HCL [Catapres] 0.1 mg PO Q4HR PRN tab 07/10/24 [Rx] Follow up Appointment(s)/Referral(s): Nonstaff,Physician [REFERRING] - 1 Week (Follow-up with your primary care provider in [place] on discharge) Activity/Diet/Wound Care/Special Instructions: Patient is going to [facility] Activity as tolerated Continue Librium taper Follow-up with [facility] outpatient Follow-up primary care provider on discharge from rehab Discharge Disposition: OTHER INSTITUTION NOT DEFINED
[2024-07-10] MEDS: CYCLOBENZAPRINE 5 MG TAB PO PRN (13:01)
== END 2024-07-10 14:11 | disposition other institution (70) | DRG 775 ==
LOC: EC 11:32 → 4SSUR 12:51 → 3SCARD 14:46 → 2SICU 17:19
PROVIDERS: ADMIT Hospitalist; ATTEND Hospitalist
DX: F10.231 Alcohol dependence with withdrawal delirium (principal); E87.6 Hypokalemia; I10 Essential (primary) hypertension; R44.3 Hallucinations, unspecified; E83.42 Hypomagnesemia; R00.1 Bradycardia, unspecified; K85.20 Alcohol induced acute pancreatitis without necrosis or infection; D69.6 Thrombocytopenia, unspecified; F17.200 Nicotine dependence, unspecified, uncomplicated; Q74.0 Other congenital malformations of upper limb(s), including shoulder girdle; Z79.51 Long term (current) use of inhaled steroids
CPT/HCPCS: 36415; 80053; 80306; 80320; 81001; 81025; 82075; 82150; 83690; 83735; 84132; 84478; 85025; 87040; 87077; 87086; 87186; 96361; 96365; 96366; 96368; 96372; 96375; 96376; 99285

== ENCOUNTER 2024-08-12 11:15 | Inpatient (IN) | payer OTHER ==
--- NOTE | 2024-08-12 11:25 | ED ---
Alcohol HPI - General Chief Complaint: Alcohol Stated Complaint: ETOH Time Seen by Provider: 08/12/24 11:21 Source: patient, RN notes reviewed Mode of arrival: ambulatory Limitations: no limitations - History of Present Illness Initial Comments: This is a 43-year-old with a history of depression, hypertension, alcohol abuse presents emergency department from [place] presentations in alcohol intoxication. Patient states that she was attempting to check herself into inpatient rehabilitation for alcohol abuse which was discharged with Emergency Department due to severely elevated alcohol levels. Patient states that she had a pint of alcohol on the drive to the rehabilitation center. She states that she is currently feeling nauseated and anxious. She denies drug use. Patient states that she has a history of alcohol withdrawal seizures. - Related Data Home Medications Medication Instructions Recorded Confirmed DULoxetine HCL [Cymbalta] 20 mg PO BID 07/08/24 08/12/24 Pregabalin [Lyrica] 150 mg PO BID 07/08/24 08/12/24 atenoloL [Tenormin] 50 mg PO HS 07/08/24 08/12/24 busPIRone HCl [Buspar] 10 mg PO TID 07/08/24 08/12/24 Mirtazapine [Remeron] 30 mg PO HS 08/12/24 08/12/24 Propranolol [Inderal] 10 mg PO BID PRN 08/12/24 08/12/24 Allergies Allergy/AdvReac Type Severity Reaction Status Date / Time No Known Allergies Allergy Verified 08/12/24 14:02 Review of Systems ROS Statement: Those systems with pertinent positive or pertinent negative responses have been documented in the HPI. ROS Other: All systems not noted in ROS Statement are negative. 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 alcoholic. History of Any Multi-Drug Resistant Organisms: None Reported Past Surgical History: No Surgical Hx Reported Past Psychological History: No Psychological Hx Reported Smoking Status: Vaper Past Alcohol Use History: Abuse, Daily, Heavy Past Drug Use History: None Reported General Exam Limitations: no limitations General appearance: alert, in no apparent distress, appears intoxicated Eye exam: Present: normal appearance, PERRL, EOMI. Absent: scleral icterus, conjunctival injection, periorbital swelling Respiratory exam: Present: normal lung sounds bilaterally. Absent: respiratory distress, wheezes, rales, rhonchi, stridor Cardiovascular Exam: Present: regular rate, normal rhythm, normal heart sounds. Absent: systolic murmur, diastolic murmur, rubs, gallop, clicks GI/Abdominal exam: Present: soft, normal bowel sounds. Absent: distended, tenderness, guarding, rebound, rigid Extremities exam: Present: normal inspection, full ROM, normal capillary refill. Absent: tenderness, pedal edema, joint swelling, calf tenderness Neurological exam: Present: alert, oriented X3, CN II-XII intact Course Vital Signs 08/12/24 11:16 Temperature 97.7 F Pulse Rate 116 H Respiratory 20 Rate Blood Pressure 131/89 O2 Sat by Pulse 96 Oximetry Medical Decision Making - Medical Decision Making Was pt. sent in by a medical professional or institution (, PA, SILVERING APPLICATOR, urgent care, hospital, or intermediate...) When possible be specific @ -Patient was sent by [facility] with concern for alcohol intoxication Did you speak to anyone other than the patient for history (EMS, parent, family, police, friend...)? What history was obtained from this source @ -No Did you review nursing and triage notes (agree or disagree)? Why? @ -I reviewed and agree with nursing and triage notes Were old charts reviewed (outside hosp., previous admission, EMS record, old EKG, old radiological studies, urgent care reports/EKG's, intermediate records)? Report findings @ -Reviewed patient's emergency department visit note from 07/08/2024 where she presented from [facility] for concern of severe alcohol withdrawal and delirium. Patient was provided with multiple dose of Ativan however this will be possible and was started on a Precedex drip and admitted to the ICU. Differential Diagnosis (chest pain, altered mental status, abdominal pain women, abdominal pain men, vaginal bleeding, weakness, fever, dyspnea, syncope, headache, dizziness, GI bleed, back pain, seizure, CVA, palpatations, mental health, musculoskeletal)? @ -Electrolyte abnormalities, alcohol intoxication, acute kidney injury, this list is not all inclusive EKG interpreted by me (3pts min.). @ -None X-rays interpreted by me (1pt min.). @ -None done CT interpreted by me (1pt min.). @ -None done U/S interpreted by me (1pt. min.). @ -None done What testing was considered but not performed or refused? (CT, X-rays, U/S, labs)? Why? @ -None What meds were considered but not given or refused? Why? @ -None Did you discuss the management of the patient with other professionals (professionals i.e. , PA, SILVERING APPLICATOR, lab, RT, psych nurse, social worker assistant, combination machine tool setter, teacher, credit control officer, case therapist)? Give summary @ -I spoke with city call physician, Dr. Vee, with [facility], who was agreed for admission and patient placed on CIWA protocol. Was smoking cessation discussed for >3mins.? @ -No Was critical care preformed (if so, how long)? @ -No Were there social determinants of health that impacted care today? How? (Homeles sness, low income, unemployed, alcoholism, drug addiction, transportation, low edu. Level, literacy, decrease access to med. care, long term, rehab)? @ -No Was there de-escalation of care discussed even if they declined (Discuss DNR or withdrawal of care, Hospice)? DNR status @ -No What co-morbidities impacted this encounter? (DM, HTN, Smoking, COPD, CAD, Cancer, CVA, ARF, Chemo, Hep., AIDS, mental health diagnosis, sleep apnea, morbid obesity)? @ -None Was patient admitted / discharged? Hospital course, mention meds given and route, prescriptions, significant lab abnormalities, going to OR and other pertinent info. @ -Admitted. 43-year-old female presenting with alcohol intoxication. On discussion patient is noted to be intoxicated. She is provided with fluids and dose of Ativan pending laboratory results. CBC and CMP are unremarkable, urinalysis no signs of infection, serum alcohol level 333. Patient will be placed on CIWA protocol and admitted to internal medicine for observation. Case discussed with Dr. Hollingsworth Undiagnosed new problem with uncertain prognosis? @ -No Drug Therapy requiring intensive monitoring for toxicity (Heparin, Nitro, Insulin, Cardizem)? @ -No Were any procedures done? @ -No Diagnosis/symptom? @ -Alcohol abuse, alcohol intoxication, impending DTs Acute, or Chronic, or Acute on Chronic? @ -Acute Uncomplicated (without systemic symptoms) or Complicated (systemic symptoms)? @ -Complicated Side effects of treatment? @ -No Exacerbation, Progression, or Severe Exacerbation? @ -No Poses a threat to life or bodily function? How? (Chest pain, [place], [place], pneumonia, PE, COPD, DKA, ARF, appy, cholecystitis, CVA, Diverticulitis, Homicidal, Suicidal, threat to staff... and all critical care pts) @ -No - Lab Data Result diagrams: 08/12/24 12:03 08/12/24 12:03 Lab Results 08/12/24 08/12/24 08/12/24 Range/Units 12:03 12:03 12:11 WBC 6.2 (3.8-10.6) k/uL RBC 4.36 (3.80-5.40) m/uL Hgb 14.1 D (11.4-16.0) gm/dL Hct 42.2 (34.0-46.0) % MCV 96.8 (80.0-100.0) fL MCH 32.4 (25.0-35.0) pg MCHC 33.4 (31.0-37.0) g/dL RDW 14.7 (11.5-15.5) % Plt Count 178 D (150-450) k/uL MPV 7.2 Neutrophils % 42 % Lymphocytes % 45 % Monocytes % 5 % Eosinophils % 4 % Basophils % 2 % Neutrophils # 2.6 (1.3-7.7) k/uL Lymphocytes # 2.8 (1.0-4.8) k/uL Monocytes # 0.3 (0-1.0) k/uL Eosinophils # 0.2 (0-0.7) k/uL Basophils # 0.1 (0-0.2) k/uL Sodium 139 (137-145) mmol/L Potassium 4.6 (3.5-5.1) mmol/L Chloride 104 (98-107) mmol/L Carbon Dioxide 24 (22-30) mmol/L Anion Gap 11 mmol/L BUN 7 (7-17) mg/dL Creatinine 0.74 (0.52-1.04) mg/dL Est GFR (CKD-EPI)AfAm >90 (>60 ml/min/1.73 sqM) Est GFR (CKD-EPI)NonAf >90 (>60 ml/min/1.73 sqM) Glucose 130 H (74-99) mg/dL Calcium 8.7 (8.4-10.2) mg/dL Magnesium 1.8 (1.6-2.3) mg/dL Total Bilirubin 0.3 (0.2-1.3) mg/dL AST 24 (14-36) U/L ALT 9 (4-34) U/L Alkaline Phosphatase 101 (38-126) U/L Total Protein 7.3 (6.3-8.2) g/dL Albumin 4.1 (3.5-5.0) g/dL Lipase 187 (23-300) U/L Urine Color Colorless Urine Appearance Cloudy H (Clear) Urine pH 7.0 (5.0-8.0) Ur Specific [place] 1.005 (1.001-1.035) Urine Protein Negative (Negative) Urine Glucose (UA) Negative (Negative) Urine Ketones Negative (Negative) Urine Blood Negative (Negative) Urine Nitrite Negative (Negative) Urine Bilirubin Negative (Negative) Urine Urobilinogen <2.0 (<2.0) mg/dL Ur Leukocyte Esterase Moderate H (Negative) Urine RBC 2 (0-5) /hpf Urine WBC 18 H (0-5) /hpf Ur Squamous Epith Cells 3 (0-4) /hpf Urine Bacteria Rare H (None) /hpf Serum Alcohol mg/dL Disposition Clinical Impression: Alcohol intoxication Disposition: ADMITTED IP TO THIS [facility] Condition: Stable Decision to Admit Reason: Admit from EC Decision Date: 08/12/24 Decision Time: 13:59
[2024-08-12 12:14] LABS: Basophils # (A) 0.1 k/uL (0-0.2); Basophils % (A) 2 %; Eosinophils # (A) 0.2 k/uL (0-0.7); Eosinophils % (A) 4 %; HCT 42.2 % (34.0-46.0); Lymphocytes # (A) 2.8 k/uL (1.0-4.8); Lymphocytes % (A) 45 %; MCH 32.4 pg (25.0-35.0); MCHC 33.4 g/dL (31.0-37.0); MCV 96.8 fL (80.0-100.0); Mean Platelet Volume 7.2; Monocytes # (A) 0.3 k/uL (0-1.0); Monocytes % (A) 5 %; Neutrophils # (A) 2.6 k/uL (1.3-7.7); Neutrophils % (A) 42 %; RBC 4.36 m/uL (3.80-5.40); RDW 14.7 % (11.5-15.5); WBC 6.2 k/uL (3.8-10.6)
[2024-08-12 12:35] LABS: Appearance,Urine Cloudy (Clear); Bacteria,Urine Rare /hpf; Bilirubin,Urine Negative (Negative); Blood,Urine Negative (Negative); Color,Urine Colorless; Glucose,Urine (UA) Negative (Negative); Ketones,Urine Negative (Negative); Leukocyte Esterase,Urine Moderate (Negative); Nitrite,Urine Negative (Negative); Protein,Urine Negative (Negative); RBC,Urine 2 /hpf (0-5); Specific Gravity,Urine 1.005 (1.001-1.035); Squamous Epithelial Cell,Urine 3 /hpf (0-4); Urobilinogen,Urine <2.0 mg/dL (<2.0); WBC,Urine 18 /hpf (0-5)
[2024-08-12 12:36] LABS: HGB 14.1 gm/dL (11.4-16.0); Platelet Count 178 k/uL (150-450)
[2024-08-12] MEDS: ONDANSETRON 4 MG/2 ML VIAL IVP STA (12:38)
[2024-08-12 12:39] LABS: ALT 9 U/L (4-34); AST 24 U/L (14-36); African American GFR (CKD) >90 (>60 ml/min/1.73 sqM); Albumin 4.1 g/dL (3.5-5.0); Alkaline Phosphatase 101 U/L (38-126); Anion Gap 11 mmol/L; Blood Urea Nitrogen 7 mg/dL (7-17); Calcium 8.7 mg/dL (8.4-10.2); Carbon Dioxide 24 mmol/L (22-30); Chloride 104 mmol/L (98-107); Glucose 130 mg/dL (74-99); Lipase 187 U/L (23-300); Magnesium 1.8 mg/dL (1.6-2.3); Non-African American GFR(CKD) >90 (>60 ml/min/1.73 sqM); Potassium 4.6 mmol/L (3.5-5.1); Sodium 139 mmol/L (137-145); Total Bilirubin 0.3 mg/dL (0.2-1.3); Total Protein 7.3 g/dL (6.3-8.2)
[2024-08-12] MEDS: LORazepam 2 MG/ML INJ IV STA (12:43)
[2024-08-12] MEDS: SODIUM CHLORIDE 0.9% 1,000 ML IV STA (12:49)
[2024-08-12] MEDS ORDERED: NALOXONE 0.4 MG/ML 1 ML VIAL IV PRN (14:00)
[2024-08-12] MEDS: SODIUM CHLORIDE 0.9% 1,000 ML IV SCH (15:21)
[2024-08-12] MEDS ORDERED: PROPRANOLOL 10 MG TAB PO PRN (15:42)
[2024-08-12] MEDS: LORazepam 2 MG/ML INJ IV PRN ×2 (15:48→19:06)
[2024-08-12] MEDS: busPIRone HCl 10 MG TAB PO SCH (17:12)
[2024-08-12] MEDS: atenoloL 50 MG TAB PO SCH (20:18)
[2024-08-12] MEDS: DULoxetine HCL 20 MG CAPSULE.DR PO SCH (20:19)
[2024-08-12] MEDS: MIRTAZAPINE 15 MG TAB PO SCH (20:19)
[2024-08-12] MEDS: PREGABALIN 75 MG CAP PO SCH (20:20)
[2024-08-13] MEDS: LORazepam 1 MG TAB PO PRN (02:18)
--- NOTE | 2024-08-13 03:03 | HP ---
HISTORY AND PHYSICAL CHIEF COMPLAINT: Alcohol intoxication. HISTORY OF PRESENT ILLNESS: This is a 43-year-old woman with a past medical history of multiple medical problems including alcohol intoxication, hypertension, right arm amputation, has been referred from [facility] because of alcohol intoxication. There is no history of any fever, rigors, or chills at this time. The patient also complains of nausea and anxiety. PAST MEDICAL HISTORY: 1. Hypertension. 2. Right arm amputation. 3. Alcohol. Rest of the history is noted. HOME MEDICATIONS: Reviewed include Inderal, dose and rest of medications noted. ALLERGIES: None. FAMILY HISTORY: No history of heart disease or strokes in the family. SOCIAL HISTORY: Alcohol, vaping. REVIEW OF SYSTEMS: A 14-point review of systems is negative except as mentioned earlier. PHYSICAL EXAMINATION: VIAL SIGNS: Pulse is 116, blood pressure 131/80, respirations 20. HEENT: Conjunctivae normal. CARDIOVASCULAR: S1, S2. RESPIRATIONS: Breath sounds diminished at the bases. ABDOMEN: Soft. LEGS: No edema. NERVOUS SYSTEM: Nonfocal. SKIN: No ulcer, rash, bleeding. JOINTS: No active deforming arthropathy. LABORATORY DATA: Reviewed. Serum alcohol level is pending at this time. ASSESSMENT: 1. Acute alcohol intoxication and early delirium tremens. 2. History of EtOH. 3. Hypertension. 4. Right arm amputation. RECOMMENDATIONS AND DISCUSSION: This is a 43-year-old woman, who presented with multiple complex medical issues, we will monitor the patient closely. WA protocol. Otherwise, we will continue to monitor. Seizure precautions. DT precautions. Once the patient is stabilized, we will consult Aviation Engineer and possibly discharge to [place]. Further recommendations to follow. MMODL / IJN: [id number] /
[2024-08-13] MEDS: IBUPROFEN 400 MG TAB PO PRN (09:06)
[2024-08-13] MEDS: ONDANSETRON 4 MG/2 ML VIAL IVP PRN (09:07)
[2024-08-13 10:46] LABS: Basophils # (A) 0.05 X 10*3/uL (0.00-0.10); Basophils % (A) 0.9 %; Eosinophils # (A) 0.27 X 10*3/uL (0.04-0.35); Eosinophils % (A) 5.1 %; HCT 38.2 % (37.2-46.3); HGB 12.8 g/dL (12.0-15.0); Lymphocytes # (A) 1.75 X 10*3/uL (0.90-5.00); MCH 32.5 pg (27.0-32.0); MCHC 33.5 g/dL (32.0-37.0); Mean Platelet Volume 9.2 FL (9.5-12.2); Monocytes # (A) 0.44 X 10*3/uL (0.20-1.00); Monocytes % (A) 8.3 %; NRBC Per 100 WBC 0 X 10*3/uL (0.00-0.01); Neutrophils # (A) 2.76 X 10*3/uL (1.80-7.70); Neutrophils % (A) 52.1 %; Platelet Count 109 X 10*3/uL (140-440); RBC 3.94 X 10*6/uL (4.10-5.20); RDW 14.7 % (11.5-14.5)
[2024-08-13] MEDS: chlordiazePOXIDE 25 MG CAP PO SCH (11:01)
[2024-08-13 11:06] LABS: Blood Urea Nitrogen 9.2 mg/dL (9.0-27.0); Chloride 102 mmol/L (96-109); Glucose 105 mg/dL (70-110); Potassium 4.4 mmol/L (3.5-5.5); Sodium 136 mmol/L (135-145)
[2024-08-13 11:07] LABS: ALT 8 U/L (8-44); AST 27 U/L (13-35); Albumin 3.7 g/dL (3.8-4.9); Albumin/Globulin Ratio 1.42 Ratio (1.60-3.17); Alkaline Phosphatase 94 U/L (41-126); Calcium 8.1 mg/dL (8.7-10.3); Carbon Dioxide 25.6 mmol/L (21.6-31.8); Globulin 2.6 g/dL (1.6-3.3); Total Bilirubin 0.4 mg/dL (0.3-1.2); Total Protein 6.3 g/dL (6.2-8.2)
[2024-08-13] MEDS: ACETAMINOPHEN TAB 325 MG TAB PO PRN (12:19)
[2024-08-13] MEDS: cloNIDine HCL 0.1 MG TAB PO SCH (15:18)
--- NOTE | 2024-08-13 18:48 | P.CNPUL ---
History of Present Illness Consult date: 08/13/24 History of present illness: This is a 43-year-old female patient, known history of alcoholism, transferred from [place] because of delirium tremens. The patient was in rehabilitation. She stated that she was getting restless, anxious, nauseated and having hallucinations secondary to alcohol withdrawal. She was brought into the hospital and she was hospitalized. I was asked to evaluate this patient in consultation for ICU transfer. I noted that the patient has received Ativan and the patient is currently on Librium and she is awake and alert and she is calm and comfortable this morning. No significant tremors. No active hallucinations. No agitation. Hemodynamically stable. White cell count is 5 hemoglobin 12.8 and the platelet count is 109. Electrolytes are all within normal limits. LFTs are nonelevated. UA showing 18 WBCs, 2 RBCs. Lipase at 187. No nausea vomiting or abdominal pain. No headaches. She is currently on room air oxygen. Her current regimen include BuSpar 10 mg p.o. 3 times daily, Librium 25 mg 4 times daily, clonidine 0.1 mg p.o. 3 times daily, Ativan per CIWA protocol and Haldol as needed. She is also on Cymbalta. Receiving IV fluids at a rate of 75 cc an hour. Review of Systems All systems: negative (Restlessness, increased anxiety and agitation which is currently inactive. She is alert and oriented x 3.) Past Medical History Past Medical History: Hypertension Additional Past Medical History / Comment(s): right arm congenital defect. Neuropathy. History of Any Multi-Drug Resistant Organisms: None Reported Past Surgical History: Hernia Repair Additional Past Surgical History / Comment(s): Umbilical hernia repair 2019 Past Anesthesia/Blood Transfusion Reactions: No Reported Reaction Past Psychological History: Anxiety Smoking Status: Current some day smoker Past Alcohol Use History: Abuse, Daily, Heavy Additional Past Alcohol Use History / Comment(s): Pt states she drinks 1/5 of peppermint schnaps. Past Drug Use History: Heroin - Past Family History Sister(s) Family Medical History: Cancer Additional Family Medical History / Comment(s): Father Family Medical History: Cancer Additional Family Medical History / Comment(s): Medications and Allergies Home Medications Medication Instructions Recorded Confirmed Type DULoxetine HCL [Cymbalta] 20 mg PO BID 07/08/24 08/12/24 History Pregabalin [Lyrica] 150 mg PO BID 07/08/24 08/12/24 History atenoloL [Tenormin] 50 mg PO HS 07/08/24 08/12/24 History busPIRone HCl [Buspar] 10 mg PO TID 07/08/24 08/12/24 History Mirtazapine [Remeron] 30 mg PO HS 08/12/24 08/12/24 History Propranolol [Inderal] 10 mg PO BID PRN 08/12/24 08/12/24 History Allergies Allergy/AdvReac Type Severity Reaction Status Date / Time No Known Allergies Allergy Verified 08/12/24 14:02 Physical Exam Vitals: Vital Signs Temp Pulse Resp BP BP Pulse Ox 08/13/24 08:00 16 08/13/24 07:00 98.3 F 73 16 134/85 96 08/13/24 02:11 98.2 F 82 18 143/86 97 08/12/24 22:41 98.0 F 79 16 132/87 96 08/12/24 19:23 98 F 91 18 116/85 95 Intake and Output 08/12/24 08/13/24 08/13/24 22:59 06:59 14:59 Intake Total 118 Balance 118 Intake: Oral 118 Other: Voiding Method Toilet Toilet # Voids 1 1 Weight 79.379 kg The patient appeared well nourished and normally developed. Vital signs as documented. Head exam is unremarkable. No scleral icterus or corneal arcus noted. Neck is without jugular venous distension, thyromegaly, or carotid bruits. Carotid upstrokes are brisk bilaterally. Lungs are clear to auscultation and percussion. Cardiac exam reveals the PMI to be normally sized and situated. Rhythm is regular. First and second heart sounds normal. No murmurs, rubs or gallops. Abdominal exam reveals normal bowel sounds, no masses, no organomegaly and no aortic enlargement. Extremities are nonedematous and both femoral and pedal pulses are normal. 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 Neurologically, the patient is awake and alert and the patient does not have any focal neurological deficit. Cranial nerves are essentially intact. Results - Laboratory Findings CBC and BMP: 08/13/24 08:02 08/13/24 08:02 Abnormal lab findings: Abnormal Labs 08/12/24 08/12/24 08/13/24 12:03 12:11 08:02 RBC 3.94 L MCH 32.5 H RDW 14.7 H Plt Count 109 L MPV 9.2 L BUN/Creatinine Ratio Glucose 130 H Calcium Albumin Albumin/Globulin Ratio Urine Appearance Cloudy H Ur Leukocyte Esterase Moderate H Urine WBC 18 H Urine Bacteria Rare H 08/13/24 08:02 RBC MCH RDW Plt Count MPV BUN/Creatinine Ratio 11.50 L Glucose Calcium 8.1 L Albumin 3.7 L Albumin/Globulin Ratio 1.42 L Urine Appearance Ur Leukocyte Esterase Urine WBC Urine Bacteria Assessment and Plan Plan: Alcohol withdrawal delirium tremens, patient received multiple doses of Ativan, please refer to the MAR. She is also on Librium, Catapres and BuSpar. Receiving Haldol on as-needed basis. At the time of evaluation, the patient was alert and oriented x 3. No significant restlessness. His CIWA scores being monitored. No active hallucinations. History of chronic alcoholism, reportedly drinks 2/5 of [employer] per day, as well as, an unspecified amount of beer. History of alcoholic pancreatitis, lipase not elevated Thrombocytopenia, possibly secondary to chronic alcohol misuse History of hypertension Chronic nicotine dependence, reportedly vapes Congenital defect of right upper extremity Plan Continue treatment for delirium tremens on the medical floor. The patient is on the appropriate regimen. CIWA scales being monitored. No need for ICU transfer at this point in time. Will continue to follow
--- NOTE | 2024-08-13 21:15 | PN ---
PROGRESS NOTE DATE OF SERVICE: 08/13/2024 SUBJECTIVE: This is a 43-year-old woman, who was admitted with acute alcohol intoxication. Had CIWA scale up to 80. No chest pain. No palpitations. No fever. OBJECTIVE: VITAL SIGNS: Pulse is 101, blood pressure 153/101, respirations 16. CHEST: A few scattered rhonchi. ABDOMEN: Soft. NERVOUS SYSTEM: Nonfocal. LABORATORY DATA: Reviewed. ASSESSMENT: 1. Acute alcohol intoxication and delirium tremens. 2. History of EtOH. 3. Hypertension. 4. Right arm amputation. RECOMMENDATIONS AND DISCUSSION: Recommend to continue current management and continue symptomatic treatment. Otherwise, I would continue with CIWA protocol, Haldol p.r.n. Transfer to telemetry. Continue to monitor. Guarded prognosis. Further recommendations to follow. MMODL / IJN: [id number] /
[2024-08-13] MEDS: cloNIDine HCL 0.1 MG TAB PO PRN (23:27)
[2024-08-14] MEDS: LORazepam 2 MG/ML INJ IV PRN (02:31)
[2024-08-14] MEDS: HALOPERIDOL LACTATE 5 MG/ML 1 ML VIAL IM PRN (03:25)
[2024-08-14 04:08] LABS: Glucose,Whole Blood 107 mg/dL (70-110)
[2024-08-14 08:51] LABS: ALT 9 U/L (4-34); AST 26 U/L (14-36); African American GFR (CKD) >90 (>60 ml/min/1.73 sqM); Albumin 3.3 g/dL (3.5-5.0); Alkaline Phosphatase 91 U/L (38-126); Anion Gap 7 mmol/L; Blood Urea Nitrogen 11 mg/dL (7-17); Calcium 8.3 mg/dL (8.4-10.2); Carbon Dioxide 27 mmol/L (22-30); Chloride 104 mmol/L (98-107); Glucose 101 mg/dL (74-99); Magnesium 1.4 mg/dL (1.6-2.3); Non-African American GFR(CKD) >90 (>60 ml/min/1.73 sqM); Potassium 3.6 mmol/L (3.5-5.1); Sodium 138 mmol/L (137-145); Total Bilirubin 0.9 mg/dL (0.2-1.3)
[2024-08-14 08:58] LABS: Basophils % (A) 1 %; Eosinophils # (A) 0.2 k/uL (0-0.7); Eosinophils % (A) 6 %; HCT 35.6 % (34.0-46.0); HGB 11.7 gm/dL (11.4-16.0); Lymphocytes # (A) 1.3 k/uL (1.0-4.8); Lymphocytes % (A) 33 %; MCH 32.4 pg (25.0-35.0); MCV 98.1 fL (80.0-100.0); Macrocytosis Slight; Mean Platelet Volume 7.8; Monocytes # (A) 0.2 k/uL (0-1.0); Monocytes % (A) 5 %; Neutrophils % (A) 54 %; Platelet Count 109 k/uL (150-450); RBC 3.62 m/uL (3.80-5.40); RDW 15.4 % (11.5-15.5); WBC 3.7 k/uL (3.8-10.6)
[2024-08-14 09:04] LABS: Alcohol 333 mg/dL
[2024-08-14] MEDS ORDERED: Potassium Replacement Protocol 1 EACH MISC MISCELLANE PRN (09:10)
[2024-08-14] MEDS ORDERED: Magnesium Replacement Protocol 1 EACH MISC MISCELLANE PRN (09:10)
[2024-08-14] MEDS: POTASSIUM CHLORIDE ER 20 MEQ TAB.ER PO SCH (09:34)
[2024-08-14] MEDS: MAGNESIUM SULFATE-D5W PMX 1 GM in DEXTROSE/WATER 1 100ML.BAG IVPB SCH (09:34)
--- NOTE | 2024-08-14 14:25 | P.PN ---
Subjective Progress Note Date: 08/14/24 This is a 43-year-old female patient, known history of alcoholism, transferred from [place] because of delirium tremens. The patient was in rehabilitation. She stated that she was getting restless, anxious, nauseated and having hallucinations secondary to alcohol withdrawal. Patient admitted for alcohol detox 08/14. Patient seen and examined. Patient is alert, answering question appropriately. Denies any auditory or visual hallucinations. REVIEW OF SYSTEMS: CONSTITUTIONAL: No fever, no malaise,. CARDIOVASCULAR: No chest pain, no palpitations, no syncope. PULMONARY: No shortness of breath, no cough, GASTROINTESTINAL: No diarrhea, no nausea, no vomiting, no abdominal pain. NEUROLOGICAL: No headaches, no weakness, PHYSICAL EXAMINATION: GENERAL: The patient is alert and oriented x3, fidgety HEENT: Pupils are round and equally reacting to light. EOMI. No scleral icterus. No conjunctival pallor. Normocephalic, atraumatic. No pharyngeal erythema. No thyromegaly. CARDIOVASCULAR: S1 and S2 present. No murmurs, rubs, or gallops. PULMONARY: Chest is clear to auscultation, no wheezing or crackles. ABDOMEN: Soft, nontender, nondistended, normoactive bowel sounds. No palpable o rganomegaly. MUSCULOSKELETAL: No joint swelling or deformity. Right upper extremity congenital defect EXTREMITIES: No cyanosis, clubbing, or pedal edema. NEUROLOGICAL: Gross neurological examination did not reveal any focal deficits. SKIN: No rashes. Assessment and plan Alcohol withdrawal delirium tremens History of chronic alcoholism Thrombocytopenia History of hypertension Chronic nicotine dependence, reportedly vapes Congenital defect of right upper extremity Monitor vital signs Monitor CBC Monitor CMP Continue telemetry monitoring Continue CIWA protocol Continue symptom triggered Ativan therapy Continue IV Protonix change continue Lovenox for DVT prophylaxis Pulmonology following Labs and medication were reviewed.. Continue same treatment. Continue with symptomatic treatment. Resume home medication. Monitor labs and vitals. DVT and GI prophylaxis. Further recommendations as per clinical course of the patient Dictation was produced using [employer] dictation software. please excuse any grammatical, word or spelling errors. Objective - Vital Signs Vital signs: Vital Signs Temp 98.6 F 08/14/24 12:00 Pulse 61 08/14/24 14:00 Resp 18 08/14/24 14:00 BP 121/71 08/14/24 14:00 Pulse Ox 93 L 08/14/24 14:00 FiO2 Intake & Output 08/13/24 08/14/24 08/14/24 18:59 06:59 18:59 Intake Total 336 27 6910 Output Total 900 Balance 236 75 240 Intake: IV 545 Invasive Line 4 20 Sodium Chloride 0.9% 1, 525 000 ml @ 75 mls/hr IV . [id number] [facility] Rx#:[id number] Intake, IV Titration 75 75 Amount Sodium Chloride 0.9% 1, 75 75 000 ml @ 75 mls/hr IV . [id number] [facility] Rx#:[id number] Oral 236 520 Output: Urine 900 Stool 0 Emesis 0 Other: Voiding Method Toilet Toilet Toilet Bedside Commode # Voids 4 0 0 # Bowel Movements 0 - Labs CBC & Chem 7: 08/14/24 08:23 08/14/24 08:23 Labs: Abnormal Lab Results - Last 24 Hours (Table) 08/12/24 08/14/24 08/14/24 Range/Units 12:03 08:23 08:23 WBC 3.7 L (3.8-10.6) k/uL RBC 3.62 L (3.80-5.40) m/uL Plt Count 109 L (150-450) k/uL Glucose 101 H (74-99) mg/dL Calcium 8.3 L (8.4-10.2) mg/dL Magnesium 1.4 L (1.6-2.3) mg/dL Total Protein 6.0 L (6.3-8.2) g/dL Albumin 3.3 L (3.5-5.0) g/dL Serum Alcohol 333 H* mg/dL
[2024-08-14] MEDS: ENOXAPARIN 40 MG/0.4 ML SYRINGE SQ SCH (15:56)
--- NOTE | 2024-08-14 16:00 | P.PN ---
Subjective Progress Note Date: 08/14/24 This is a 43-year-old female patient, known history of alcoholism, transferred from [place] because of delirium tremens. The patient was in rehabilitation. She stated that she was getting restless, anxious, nauseated and having hallucinations secondary to alcohol withdrawal. She was brought into the hospital and she was hospitalized. I was asked to evaluate this patient in consultation for ICU transfer. I noted that the patient has received Ativan and the patient is currently on Librium and she is awake and alert and she is calm and comfortable this morning. No significant tremors. No active hallucinations. No agitation. Hemodynamically stable. White cell count is 5 hemoglobin 12.8 and the platelet count is 109. Electrolytes are all within normal limits. LFTs are nonelevated. UA showing 18 WBCs, 2 RBCs. Lipase at 187. No nausea vomiting or abdominal pain. No headaches. She is currently on room air oxygen. Her current regimen include BuSpar 10 mg p.o. 3 times daily, Librium 25 mg 4 times daily, clonidine 0.1 mg p.o. 3 times daily, Ativan per CIWA protocol and Haldol as needed. She is also on Cymbalta. Receiving IV fluids at a rate of 75 cc an hour. On 08/14/2024, the patient is being seen in the intensive care unit. Overnight, the patient got transferred to the ICU as the patient was becoming more restless and agitated. Since her admission, the patient received a total of 90 mg of IV Ativan. She has also received 5 mg of IM Haldol overnight. Her last Ativan dose was around 5:30 AM this morning. At the time of my evaluation, the patient CIWA scale was at 2. She was calm and comfortable alert and oriented. Rest of the medications are unchanged. No nausea vomiting or abdominal pain. No focal neurological deficits. The white cell count of 3.7 with a hemoglobin 11.7 and platelet count of 109. Electrolytes are all within normal limits. She is afebrile and she remains on room air oxygen. Objective - Vital Signs Vital signs: Vital Signs Temp 98.4 F 08/14/24 08:00 Pulse 55 L 08/14/24 09:00 Resp 16 08/14/24 09:00 BP 128/76 08/14/24 09:00 Pulse Ox 96 08/14/24 09:00 FiO2 Intake & Output 01/29/25 01/30/25 01/30/25 18:59 06:59 18:59 Intake Total 236 75 235 Output Total 0 Balance 236 75 235 Intake: IV 160 Invasive Line 4 10 Sodium Chloride 0.9% 1, 150 000 ml @ 75 mls/hr IV . [id number] [facility] Rx#:[id number] Intake, IV Titration 75 75 Amount Sodium Chloride 0.9% 1, 75 75 000 ml @ 75 mls/hr IV . [id number] [facility] Rx#:[id number] Oral 236 Output: Urine 0 Stool 0 Emesis 0 Other: Voiding Method Toilet Toilet Toilet Bedside Commode # Voids 4 0 0 # Bowel Movements 0 - Exam The patient appeared well nourished and normally developed. Vital signs as documented. Head exam is unremarkable. No scleral icterus or corneal arcus noted. Neck is without jugular venous distension, thyromegaly, or carotid bruits. Carotid upstrokes are brisk bilaterally. Lungs are clear to auscultation and percussion. Cardiac exam reveals the PMI to be normally sized and situated. Rhythm is regular. First and second heart sounds normal. No murmurs, rubs or gallops. Abdominal exam reveals normal bowel sounds, no masses, no organomegaly and no aortic enlargement. Extremities are nonedematous and both femoral and pedal pulses are normal. 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 Neurologically, the patient is awake and alert and the patient does not have any focal neurological deficit. Cranial nerves are essentially intact. - Labs CBC & Chem 7: 08/14/24 08:23 08/14/24 08:23 Labs: Abnormal Lab Results - Last 24 Hours (Table) 08/12/24 08/13/24 08/13/24 Range/Units 12:03 08:02 08:02 WBC (3.8-10.6) k/uL RBC 3.94 L (4.10-5.20) X 10*6/uL MCH 32.5 H (27.0-32.0) pg RDW 14.7 H (11.5-14.5) % Plt Count 109 L (140-440) X 10*3/uL MPV 9.2 L (9.5-12.2) FL BUN/Creatinine Ratio 11.50 L (12.00-20.00) Ratio Glucose (74-99) mg/dL Calcium 8.1 L (8.7-10.3) mg/dL Magnesium (1.6-2.3) mg/dL Total Protein (6.3-8.2) g/dL Albumin 3.7 L (3.8-4.9) g/dL Albumin/Globulin Ratio 1.42 L (1.60-3.17) Ratio Serum Alcohol 333 H* mg/dL 08/14/24 08/14/24 Range/Units 08:23 08:23 WBC 3.7 L (3.8-10.6) k/uL RBC 3.62 L (4.10-5.20) X 10*6/uL MCH (27.0-32.0) pg RDW (11.5-14.5) % Plt Count 109 L (140-440) X 10*3/uL MPV (9.5-12.2) FL BUN/Creatinine Ratio (12.00-20.00) Ratio Glucose 101 H (74-99) mg/dL Calcium 8.3 L (8.7-10.3) mg/dL Magnesium 1.4 L (1.6-2.3) mg/dL Total Protein 6.0 L (6.3-8.2) g/dL Albumin 3.3 L (3.8-4.9) g/dL Albumin/Globulin Ratio (1.60-3.17) Ratio Serum Alcohol mg/dL Assessment and Plan Plan: Alcohol withdrawal delirium tremens, patient received multiple doses of Ativan, a total of 19 mg of Ativan in addition to Haldol. Currently CIWA score is at 2 and the patient is calm and comfortable and following commands and communicating. No significant agitation. She was transferred to the intensive care for further monitoring. History of chronic alcoholism, reportedly drinks 2/5 of [employer] shops per day, as well as, an unspecified amount of beer. History of alcoholic pancreatitis, lipase not elevated Thrombocytopenia, possibly secondary to chronic alcohol misuse History of hypertension Chronic nicotine dependence, reportedly vapes Congenital defect of right upper extremity Plan Continue treatment for delirium tremens Continue Ativan per CIWA protocol Continue Librium Continue Haldol Continue BuSpar Continue Catapres The patient is on the appropriate regimen. CIWA scales being monitored Will continue to follow
[2024-08-14] MEDS: LORazepam 0.5 MG TAB PO PRN (21:25)
[2024-08-15 03:54] LABS: African American GFR (CKD) >90 (>60 ml/min/1.73 sqM); Anion Gap 6 mmol/L; Blood Urea Nitrogen 9 mg/dL (7-17); Calcium 8.4 mg/dL (8.4-10.2); Carbon Dioxide 24 mmol/L (22-30); Chloride 105 mmol/L (98-107); Glucose 103 mg/dL (74-99); Non-African American GFR(CKD) >90 (>60 ml/min/1.73 sqM); Potassium 4.2 mmol/L (3.5-5.1); Sodium 135 mmol/L (137-145)
[2024-08-15 04:18] LABS: HCT 35.8 % (34.0-46.0); HGB 11.5 gm/dL (11.4-16.0); MCH 32.6 pg (25.0-35.0); MCHC 32.2 g/dL (31.0-37.0); MCV 101.2 fL (80.0-100.0); Macrocytosis Slight; Mean Platelet Volume 8.2; Platelet Count 102 k/uL (150-450); RBC 3.53 m/uL (3.80-5.40); RDW 15.3 % (11.5-15.5); WBC 5.3 k/uL (3.8-10.6)
[2024-08-15] MEDS: PANTOPRAZOLE 40 MG/10 ML VIAL IVP SCH (08:18)
[2024-08-15 09:30] LABS: Amylase 42 U/L (30-110); Lipase 148 U/L (23-300)
[2024-08-15] MEDS: LORazepam 1 MG TAB PO PRN ×2 (09:50→13:41)
--- NOTE | 2024-08-15 12:59 | P.PN ---
Subjective Progress Note Date: 08/15/24 This is a 43-year-old female patient, known history of alcoholism, transferred from [place] because of delirium tremens. The patient was in rehabilitation. She stated that she was getting restless, anxious, nauseated and having hallucinations secondary to alcohol withdrawal. Patient admitted for alcohol detox 08/14. Patient seen and examined. Patient is alert, answering question appropriately. Denies any auditory or visual hallucinations. 08/15. Patient seen and examined.Blood work done showed WBC 5.3, hemoglobin 11.5, platelet count 102, sodium 135, potassium 4.2. Last CIWA score was 7 REVIEW OF SYSTEMS: CONSTITUTIONAL: No fever, no malaise,. CARDIOVASCULAR: No chest pain, no palpitations, no syncope. PULMONARY: No shortness of breath, no cough, GASTROINTESTINAL: No diarrhea, no nausea, no vomiting, no abdominal pain. NEUROLOGICAL: No headaches, no weakness, PHYSICAL EXAMINATION: GENERAL: The patient is alert and oriented x3, fidgety HEENT: Pupils are round and equally reacting to light. EOMI. No scleral icterus. No conjunctival pallor. Normocephalic, atraumatic. No pharyngeal erythema. No thyromegaly. CARDIOVASCULAR: S1 and S2 present. No murmurs, rubs, or gallops. PULMONARY: Chest is clear to auscultation, no wheezing or crackles. ABDOMEN: Soft, nontender, nondistended, normoactive bowel sounds. No palpable organomegaly. MUSCULOSKELETAL: No joint swelling or deformity. Right upper extremity congenital defect EXTREMITIES: No cyanosis, clubbing, or pedal edema. NEUROLOGICAL: Gross neurological examination did not reveal any focal deficits. SKIN: No rashes. Assessment and plan Alcohol withdrawal delirium tremens History of chronic alcoholism Thrombocytopenia History of hypertension Chronic nicotine dependence, reportedly vapes Congenital defect of right upper extremity Monitor vital signs Monitor CBC Monitor CMP Continue telemetry monitoring Continue CIWA protocol Continue symptom triggered Ativan therapy Continue IV Protonix continue Lovenox for DVT prophylaxis Pulmonology following Labs and medication were reviewed.. Continue same treatment. Continue with symptomatic treatment. Resume home medication. Monitor labs and vitals. DVT and GI prophylaxis. Further recommendations as per clinical course of the patient Dictation was produced using [employer] dictation software. please excuse any grammatical, word or spelling errors. Objective - Vital Signs Vital signs: Vital Signs Temp 97.9 F 08/15/24 08:00 Pulse 79 08/15/24 08:00 Resp 18 08/15/24 08:00 BP 125/70 08/15/24 08:00 Pulse Ox 95 08/15/24 08:00 FiO2 2 08/15/24 04:00 Intake & Output 08/14/24 08/15/24 08/15/24 18:59 06:59 18:59 Intake Total 1765 855 680 Output Total 1800 700 300 Balance -35 155 380 Weight 79.8 kg Intake: IV 930 855 160 Invasive Line 4 30 30 10 Sodium Chloride 0.9% 1, 900 825 150 000 ml @ 75 mls/hr IV . [id number] [facility] Rx#:[id number] Intake, IV Titration 75 Amount Sodium Chloride 0.9% 1, 75 000 ml @ 75 mls/hr IV . [id number] [facility] Rx#:[id number] Oral 760 520 Output: Urine 1800 700 300 Stool 0 Emesis 0 Other: Voiding Method Bedside Commode Bedside Commode Bedside Commode # Voids 0 # Bowel Movements 0 - Labs CBC & Chem 7: 08/15/24 03:09 08/15/24 03:09 Labs: Abnormal Lab Results - Last 24 Hours (Table) 08/15/24 08/15/24 Range/Units 03:09 03:09 RBC 3.53 L (3.80-5.40) m/uL MCV 101.2 H (80.0-100.0) fL Plt Count 102 L (150-450) k/uL Sodium 135 L (137-145) mmol/L Glucose 103 H (74-99) mg/dL
[2024-08-15] MEDS: NICOTINE 7MG/24HR PATCH TRANSDERM SCH (16:36)
[2024-08-15] MEDS: LACTULOSE 20 GM/30 ML CUP PO SCH (17:03)
--- NOTE | 2024-08-15 17:05 | P.PN ---
Subjective Progress Note Date: 08/15/24 This is a 43-year-old female patient, known history of alcoholism, transferred from [place] because of delirium tremens. The patient was in rehabilitation. She stated that she was getting restless, anxious, nauseated and having hallucinations secondary to alcohol withdrawal. She was brought into the hospital and she was hospitalized. I was asked to evaluate this patient in consultation for ICU transfer. I noted that the patient has received Ativan and the patient is currently on Librium and she is awake and alert and she is calm and comfortable this morning. No significant tremors. No active hallucinations. No agitation. Hemodynamically stable. White cell count is 5 hemoglobin 12.8 and the platelet count is 109. Electrolytes are all within normal limits. LFTs are nonelevated. UA showing 18 WBCs, 2 RBCs. Lipase at 187. No nausea vomiting or abdominal pain. No headaches. She is currently on room air oxygen. Her current regimen include BuSpar 10 mg p.o. 3 times daily, Librium 25 mg 4 times daily, clonidine 0.1 mg p.o. 3 times daily, Ativan per CIWA protocol and Haldol as needed. She is also on Cymbalta. Receiving IV fluids at a rate of 75 cc an hour. On 08/14/2024, the patient is being seen in the intensive care unit. Overnight, the patient got transferred to the ICU as the patient was becoming more restless and agitated. Since her admission, the patient received a total of 90 mg of IV Ativan. She has also received 5 mg of IM Haldol overnight. Her last Ativan dose was around 5:30 AM this morning. At the time of my evaluation, the patient CIWA scale was at 2. She was calm and comfortable alert and oriented. Rest of the medications are unchanged. No nausea vomiting or abdominal pain. No focal neurological deficits. The white cell count of 3.7 with a hemoglobin 11.7 and platelet count of 109. Electrolytes are all within normal limits. She is afebrile and she remains on room air oxygen. 08/15/2024, the patient is being seen for a follow-up. Calm and comfortable. Overnight, the patient received a total of 4 mg IV Ativan. CIWA scale is down to 3. Doing well. Calm and comfortable. Tolerating diet. Hemodynamically stable. No other significant events overnight. Having some vague abdominal discomfort. Noted amylase level at the time of admission was within normal limits and repeat laboratories to be obtained today. Electrolytes are within normal limits. The white cell count of 5.3 with a hemoglobin 11.5 and a platelet count of 102. Afebrile. No focal neurological deficits for now. The patient has no other specific complaints. Objective - Vital Signs Vital signs: Vital Signs Temp 97.9 F 08/15/24 08:00 Pulse 79 08/15/24 08:00 Resp 18 08/15/24 08:00 BP 125/70 08/15/24 08:00 Pulse Ox 95 08/15/24 08:00 FiO2 2 08/15/24 04:00 Intake & Output 08/14/24 08/15/24 08/15/24 18:59 06:59 18:59 Intake Total 1765 855 680 Output Total 1800 700 300 Balance -35 155 380 Weight 79.8 kg Intake: IV 930 855 160 Invasive Line 4 30 30 10 Sodium Chloride 0.9% 1, 900 825 150 000 ml @ 75 mls/hr IV . [id number] [facility] Rx#:[id number] Intake, IV Titration 75 Amount Sodium Chloride 0.9% 1, 75 000 ml @ 75 mls/hr IV . [id number] [facility] Rx#:[id number] Oral 760 520 Output: Urine 1800 700 300 Stool 0 Emesis 0 Other: Voiding Method Bedside Commode Bedside Commode Bedside Commode # Voids 0 # Bowel Movements 0 - Exam The patient appeared well nourished and normally developed. Vital signs as documented. Head exam is unremarkable. No scleral icterus or corneal arcus noted. Neck is without jugular venous distension, thyromegaly, or carotid bruits. Carotid upstrokes are brisk bilaterally. Lungs are clear to auscultation and percussion. Cardiac exam reveals the PMI to be normally sized and situated. Rhythm is regular. First and second heart sounds normal. No murmurs, rubs or gallops. Abdominal exam reveals normal bowel sounds, no masses, no organomegaly and no aortic enlargement. Extremities are nonedematous and both femoral and pedal pulses are normal. 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 Neurologically, the patient is awake and alert and the patient does not have any focal neurological deficit. Cranial nerves are essentially intact. - Labs CBC & Chem 7: 08/15/24 03:09 08/15/24 03:09 Labs: Abnormal Lab Results - Last 24 Hours (Table) 08/15/24 08/15/24 Range/Units 03:09 03:09 RBC 3.53 L (3.80-5.40) m/uL MCV 101.2 H (80.0-100.0) fL Plt Count 102 L (150-450) k/uL Sodium 135 L (137-145) mmol/L Glucose 103 H (74-99) mg/dL Assessment and Plan Plan: Alcohol withdrawal delirium tremens, patient received multiple doses of Ativan, a total of 19 mg of Ativan in addition to Haldol. Currently CIWA score is at 2 and the patient is calm and comfortable and following commands and commun icating. No significant agitation. She was transferred to the intensive care for further monitoring. History of chronic alcoholism, reportedly drinks 2/5 of [employer] shops per day, as well as, an unspecified amount of beer. History of alcoholic pancreatitis, lipase not elevated Thrombocytopenia, possibly secondary to chronic alcohol misuse History of hypertension Chronic nicotine dependence, reportedly vapes Congenital defect of right upper extremity Plan Continue treatment for delirium tremens, currently stable, the Ativan requirement has been minimal overnight Alert and oriented x 3 Continue Ativan per CIWA protocol Continue Librium Continue Haldol Continue BuSpar Continue Catapres The patient is on the appropriate regimen. CIWA scales being monitored Will transfer this patient to medical floor
[2024-08-15] MEDS: polyethylene glycoL 3350 17 GM POWD.PACK PO SCH (22:13)
[2024-08-16 08:04] VITALS: BP 117/78; PULSE 68; RESP 16; TEMP 97.4
[2024-08-16] MEDS: PANTOPRAZOLE 40 MG TABLET PO SCH (09:28)
--- NOTE | 2024-08-16 12:42 | P.DS ---
Providers Date of admission: 08/12/24 13:39 Expected date of discharge: 08/16/24 Attending physician: Ramona Vee Consults: 08/13/24 11:39 Consult Physician Routine Consulting Provider: Sheree Aleman Consult Reason/Comments: ETOH WITHDRAWL POTENTION ICU TRANSFER Do you want consulting provider notified?: Yes Primary care physician: Stated None Hospital Course: Discharge diagnoses; Alcohol withdrawal delirium tremens History of chronic alcoholism Thrombocytopenia History of hypertension Chronic nicotine dependence, reportedly vapes Congenital defect of right upper extremity Hospital course; This is a 43-year-old female patient, known history of alcoholism, transferred from [place] because of delirium tremens. The patient was in rehabilitation. She stated that she was getting restless, anxious, nauseated and having hallucinations secondary to alcohol withdrawal. Patient admitted for alcohol detox 08/14. Patient seen and examined. Patient is alert, answering question appropriately. Denies any auditory or visual hallucinations. 08/15. Patient seen and examined.Blood work done showed WBC 5.3, hemoglobin 11.5, platelet count 102, sodium 135, potassium 4.2. Last CIWA score was 7 08/16. Patient seen and examined. CIWA scores have been low. Patient is medically stable for discharge. PHYSICAL EXAMINATION: GENERAL: The patient is alert and oriented x3, not in any acute distress. Well developed, well nourished. HEENT: Pupils are round and equally reacting to light. EOMI. No scleral icterus. No conjunctival pallor. Normocephalic, atraumatic. No pharyngeal erythema. No thyromegaly. CARDIOVASCULAR: S1 and S2 present. No murmurs, rubs, or gallops. PULMONARY: Chest is clear to auscultation, no wheezing or crackles. ABDOMEN: Soft, nontender, nondistended, normoactive bowel sounds. No palpable organomegaly. MUSCULOSKELETAL: No joint swelling or deformity. EXTREMITIES: No cyanosis, clubbing, or pedal edema. NEUROLOGICAL: Gross neurological examination did not reveal any focal deficits. SKIN: No rashes. Dictation was produced using [employer] software. please excuse any grammatical, word or spelling errors. Patient Condition at Discharge: Stable Plan - Discharge Summary Discharge Rx Participant: No New Discharge Prescriptions: New Folic Acid 1 mg PO DAILY 30 Days #30 tablet Thiamine [Vitamin B-1] 100 mg PO DAILY 30 Days #30 tablet Continue DULoxetine HCL [Cymbalta] 20 mg PO BID Mirtazapine [Remeron] 30 mg PO HS Pregabalin [Lyrica] 150 mg PO BID busPIRone HCl [Buspar] 10 mg PO TID atenoloL [Tenormin] 50 mg PO HS Propranolol [Inderal] 10 mg PO BID PRN PRN Reason: Anxiety/Blood Pressure - High Discharge Medication List DULoxetine HCL [Cymbalta] 20 mg PO BID 07/08/24 [History] Pregabalin [Lyrica] 150 mg PO BID 07/08/24 [History] atenoloL [Tenormin] 50 mg PO HS 07/08/24 [History] busPIRone HCl [Buspar] 10 mg PO TID 07/08/24 [History] Mirtazapine [Remeron] 30 mg PO HS 08/12/24 [History] Propranolol [Inderal] 10 mg PO BID PRN 08/12/24 [History] Folic Acid 1 mg PO DAILY 30 Days #30 tablet 08/16/24 [Rx] Thiamine [Vitamin B-1] 100 mg PO DAILY 30 Days #30 tablet 08/16/24 [Rx] Follow up Appointment(s)/Referral(s): None,Stated [Primary Care Provider] - 1-2 days [facility] [NON-STAFF] - 1 Week Activity/Diet/Wound Care/Special Instructions: ATTN NURSING STAFF: PT'S MICHAEL WAS TAKEN TO SECURITY, PLEASE GIVE BACK TO HER UPON DISCHARGE Discharge/Stand Alone Forms: NA Meetings in [place], AA Meetings [place], Who Do I Call?, Community Resources, Outpatient Counseling, Inp Substance Abuse Facilities, PH Area PCPs Discharge Disposition: HOME SELF-CARE
--- NOTE | 2024-08-16 15:00 | P.PN ---
Subjective Progress Note Date: 08/16/24 This is a 43-year-old female patient, known history of alcoholism, transferred from [place] because of delirium tremens. The patient was in rehabilitation. She stated that she was getting restless, anxious, nauseated and having hallucinations secondary to alcohol withdrawal. She was brought into the hospital and she was hospitalized. I was asked to evaluate this patient in consultation for ICU transfer. I noted that the patient has received Ativan and the patient is currently on Librium and she is awake and alert and she is calm and comfortable this morning. No significant tremors. No active hallucinations. No agitation. Hemodynamically stable. White cell count is 5 hemoglobin 12.8 and the platelet count is 109. Electrolytes are all within normal limits. LFTs are nonelevated. UA showing 18 WBCs, 2 RBCs. Lipase at 187. No nausea vomiting or abdominal pain. No headaches. She is currently on room air oxygen. Her current regimen include BuSpar 10 mg p.o. 3 times daily, Librium 25 mg 4 times daily, clonidine 0.1 mg p.o. 3 times daily, Ativan per CIWA protocol and Haldol as needed. She is also on Cymbalta. Receiving IV fluids at a rate of 75 cc an hour. On 08/14/2024, the patient is being seen in the intensive care unit. Overnight, the patient got transferred to the ICU as the patient was becoming more restless and agitated. Since her admission, the patient received a total of 90 mg of IV Ativan. She has also received 5 mg of IM Haldol overnight. Her last Ativan dose was around 5:30 AM this morning. At the time of my evaluation, the patient CIWA scale was at 2. She was calm and comfortable alert and oriented. Rest of the medications are unchanged. No nausea vomiting or abdominal pain. No focal neurological deficits. The white cell count of 3.7 with a hemoglobin 11.7 and platelet count of 109. Electrolytes are all within normal limits. She is afebrile and she remains on room air oxygen. 08/15/2024, the patient is being seen for a follow-up. Calm and comfortable. Overnight, the patient received a total of 4 mg IV Ativan. CIWA scale is down to 3. Doing well. Calm and comfortable. Tolerating diet. Hemodynamically stable. No other significant events overnight. Having some vague abdominal discomfort. Noted amylase level at the time of admission was within normal limits and repeat laboratories to be obtained today. Electrolytes are within normal limits. The white cell count of 5.3 with a hemoglobin 11.5 and a platelet count of 102. Afebrile. No focal neurological deficits for now. The patient has no other specific complaints. 08/16/2024, the patient is back to baseline. No new complaints. Ready for discharge. Objective - Vital Signs Vital signs: Vital Signs Temp 97.4 F L 08/16/24 07:15 Pulse 68 08/16/24 07:15 Resp 16 08/16/24 07:15 BP 117/78 08/16/24 07:15 Pulse Ox 98 08/16/24 07:15 FiO2 2 08/15/24 04:00 Intake & Output 08/15/24 08/16/24 08/16/24 18:59 06:59 18:59 Intake Total 1875 540 Output Total 900 Balance 975 540 Intake: IV 835 Invasive Line 4 10 Sodium Chloride 0.9% 1, 825 000 ml @ 75 mls/hr IV . [id number] [facility] Rx#:[id number] Oral 1040 540 Output: Urine 900 Other: Voiding Method Bedside Commode # Voids 1 # Bowel Movements 0 - Exam The patient appeared well nourished and normally developed. Vital signs as documented. Head exam is unremarkable. No scleral icterus or corneal arcus noted. Neck is without jugular venous distension, thyromegaly, or carotid bruits. Carotid upstrokes are brisk bilaterally. Lungs are clear to auscultation and percussion. Cardiac exam reveals the PMI to be normally sized and situated. Rhythm is regular. First and second heart sounds normal. No murmurs, rubs or gallops. Abdominal exam reveals normal bowel sounds, no masses, no organomegaly and no aortic enlargement. Extremities are nonedematous and both femoral and pedal pulses are normal. 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 Neurologically, the patient is awake and alert and the patient does not have any focal neurological deficit. Cranial nerves are essentially intact. - Labs CBC & Chem 7: 08/15/24 03:09 08/15/24 03:09 Assessment and Plan Plan: Alcohol withdrawal delirium tremens, recovered and the patient clinically stable History of chronic alcoholism, reportedly drinks 2/5 of peppermint shops per day, as well as, an unspecified amount of beer. History of alcoholic pancreatitis, lipase not elevated Thrombocytopenia, possibly secondary to chronic alcohol misuse History of hypertension Chronic nicotine dependence, reportedly vapes Congenital defect of right upper extremity Plan Alert and oriented x 3 The patient is to be discharged home on a combination of Cymbalta 20 mg p.o. twice daily and ambulatory milligrams at bedtime. She will also continue BuSpar 10 mg p.o. 3 times daily, thiamine and folate. Cleared for discharge from pulmonary standpoint.
== END 2024-08-16 11:44 | disposition home or self-care (01) | DRG 775 ==
LOC: EC 11:15 → 6NMEDSUR 13:39 → OBSVTOIN 13:39 → 6NMEDSUR 17:38 → 3SCARD 08-13 20:01 → 2SICU 08-14 03:50 → 5NMEDONC 08-15 17:26
PROVIDERS: ADMIT Hospitalist; ATTEND Hospitalist
PROC: HZ2ZZZZ Detoxification Services for Substance Abuse Treatment (ICD-10-PCS; principal; 2024-08-12)
DX: F10.221 Alcohol dependence with intoxication delirium (principal); F41.9 Anxiety disorder, unspecified; F17.290 Nicotine dependence, other tobacco product, uncomplicated; I10 Essential (primary) hypertension; G62.9 Polyneuropathy, unspecified; D69.6 Thrombocytopenia, unspecified; F10.231 Alcohol dependence with withdrawal delirium; Z71.41 Alcohol abuse counseling and surveillance of alcoholic; Z79.899 Other long term (current) drug therapy; Z89.201 Acquired absence of right upper limb, unspecified level; Z87.19 Personal history of other diseases of the digestive system
CPT/HCPCS: 36415; 80048; 80053; 80320; 81001; 82150; 83690; 83735; 85025; 85027; 96361; 96374; 96375; 96376; 99285